=== PATIENT | male | born 1950 | race Caucasian/White ===

== ENCOUNTER 2019-01-03 10:14 | Inpatient (IN) ==
--- NOTE | 2019-01-03 10:44 | Emergency Department Note ---
Disposition Clinical Impression: Acute osteomyelitis, NSTEMI (non-ST elevated myocardial infarction) Diskitis Qualifiers: Spinal region: lumbosacral Qualified Code(s): M46.47 - Discitis, unspecified, lumbosacral region Disposition: Admitted As Inpatient Condition: Good Time of Disposition: 12:58 General Adult HPI - General Stated complaint: positive blood culture Time Seen by Provider: 01/03/19 10:16 Source: patient Limitations: no limitations Nursing Notes Reviewed: Yes Vital Signs Reviewed: Yes - History of Present Illness HPI Narrative: Male patient presenting to the emergency department being sent in by ID for positive blood cultures. States that he is been having issues with his lower back since the day after [place]. He had an extensive workup and was found to have possible discitis. He is scheduled for biopsy tomorrow. And he is requ esting admission to the hospital and also to withhold antibiotics if at all possible until the biopsy can be performed. He did have one blood culture that showed positive for strep species. Sensitivities are not back yet. Patient reports he is just not been feeling well over the past several months. Fatigue more than anything. Does have a history of aortic valve replacement as well as atrial fibrillation. He has been off his own request in preparation for this biopsy tomorrow. He denies any fevers today the states that he did have a fever of 102 approximately a week ago. He has had several episodes of nausea and vomiting but none at this time. He is refusing any medication currently. We will get a basic lab workup on patient as well as a chest x-ray secondary to a cough that he states he has. Pain Scale: 0 - Related Data Allergies Allergy/AdvReac Type Severity Reaction Status Date / Time Penicillins Allergy See Verified 01/03/19 10:58 Comments All systems ED: reviewed and negative except as stated. Review of Systems: As Per HPI Constitutional: Reports: fever (Intermittent not today.) Cardiovascular: Denies: chest pain, syncope Respiratory: Reports: cough, dyspnea. Denies: sputum production Gastrointestinal: Reports: nausea (Occasional not currently), vomiting ( occasional not currently). Denies: abdominal pain, diarrhea Genitourinary: Denies: dysuria Musculoskeletal: Reports: other (Did not complain of ankle pain to me but did to my attending). Denies: back pain (Did previously have back pain but states it feels better at this time) Integumentary: Denies: lesions Past Medical History - Past Medical History Attestation: Yes The following information was validated with the patient. Source: patient Medical history: Reports: atrial fibrillation, hyperlipidemia, hypertension Psychiatric history: Reports: no psych history - Social History Smoking Status: Never smoker Alcohol use: Reports: none Drug use: Reports: none Physical Exam - General Limitations: no limitations General appearance: alert, in no apparent distress - Head Head exam: atraumatic, normocephalic, normal inspection - Eye Eye exam: Present: normal appearance, PERRL, EOMI - ENT ENT exam: normal exam, normal oropharynx, mucous membranes moist - Neck Neck exam: Present: normal inspection, full ROM, trachea midline - Chest Chest inspection: Present: normal inspection, symmetric chest wall rise. Absent: tenderness - Respiratory Respiratory exam: Present: normal lung sounds bilaterally. Absent: respiratory distress, accessory muscle use - Cardiovascular Cardiovascular exam: Present: regular rate, normal rhythm, normal heart sounds - Abdominal Exam Abdominal exam: Present: soft, Non-Tender. Absent: tenderness, distention, guarding, rebound, rigidity, organomegaly - Extremities Exam Extremities exam: Present: normal inspection, full ROM, normal capillary refill. Absent: tenderness, pedal edema, calf tenderness - Back Exam Back exam: Present: normal inspection, full ROM. Absent: tenderness - Neurological Exam Neurological exam: Present: alert, oriented X3 - Psychiatric Psychiatric exam: Present: normal affect, normal mood - Skin Skin exam: Present: warm, dry, intact, other (Ashen in color). Absent: rash Course Course Narrative: Male patient with a significant history of discitis that he is supposed to undergo a biopsy of tomorrow by IR presenting after positive blood cultures were noted. He was positive for streptococcal species. Patient reports intermittent fevers at home but is not febrile here. He is mentating appropriately albeit ashen in color. He denies any chest pain but does report shortness of breath on ambulation. As well as generalized fatigue. Does have history of aortic valve replacement. Was on Elequis however this was held due to the patient's procedure tomorrow. Basic labs were drawn chest x-ray was ordered and repeat blood cultures were ordered. Patient's only had one blood culture result with Streptococcus the other one did not. Leukocytosis was mild at 11. He is not febrile. Patient does report occasional shortness of breath and did have a notably elevated troponin at 0.7. I discussed this with the patient as well as the nurse practitioner on for ID. The concern is we will really like to have the biopsy done prior to the patient being placed on antibiotics however the patient does appear to have some heart strain at this time. No active chest pain no signs of STEMI on the EKG. We did elect to do a CTA of the patient's chest as he has been off the Ellik was he does report some shortness of breath and fatigue. This did not show signs of a PE. We will place patient on heparin. This needs to be stopped approximately 2 hours prior to the biopsies tomorrow. I did make the hospitalist aware of that. - Consultations Consultation #1: I spoke with Annalee Jeet the OMAR from ID about the Pt presentation and elevated troponin. She is going to attempted to get ahold of IR and discuss possible anticoagulation strategies with them. Time: 12:01 Vital Signs Temperature 98.6 F 01/03/19 10:24 Pulse Rate 93 01/03/19 10:24 Respiratory Rate 20 01/03/19 10:24 Blood Pressure 96/66 01/03/19 10:24 O2 Sat by Pulse Oximetry 98 01/03/19 10:24 Temperature 98.6 F 01/03/19 10:24 Pulse Rate 89 01/03/19 12:04 Respiratory Rate 16 01/03/19 12:04 Blood Pressure 105/60 01/03/19 12:04 O2 Sat by Pulse Oximetry 100 01/03/19 12:04 Oxygen Delivery Oxygen Delivery Room Air Medical Decision Making - Medical Records Medical records reviewed: Yes I reviewed the patient's medical records. - Lab Data Lab results reviewed: Yes I reviewed the patient's lab results. Result diagrams: 01/03/19 13:07 01/03/19 10:27 Lab Results 01/03/19 01/03/19 01/03/19 Range/Units 10:27 10:27 10:27 WBC 11.7 H (4.3-11.1) K/mcL RBC 4.12 L (4.19-5.50) M/mcL Hgb 10.7 L (12.9-16.9) g/dL Hct 34.4 L (37.5-50.1) % MCV 83.5 (83.0-100.0) fL MCH 26.0 L (28.0-33.3) pg MCHC 31.1 L (31.6-35.5) g/dL RDW 14.1 (11.5-14.5) % Plt Count 113 L (140-400) K/mcL MPV 8.8 L (9.4-12.4) fL Immature Gran % 0.9 (0-4) % Seg Neutrophils % 83.4 % Lymphocytes % 7.9 % Monocytes % 7.5 % Eosinophils % 0.1 % Basophils % 0.2 % Neutrophils # 9.8 H (1.6-8.9) K/mcL Lymphocytes # 0.9 (0.6-4.6) K/mcL Monocytes # 0.9 (0.0-1.3) K/mcL Eosinophils # 0.0 (0.0-0.6) K/mcL Basophils # 0.0 (0.0-0.2) K/mcL Immature Plt Fraction (1.1-6.1) % PT 17.7 H (9.4-12.1) Seconds INR 1.6 APTT 35.0 (26.0-36.0) Seconds Heparin Anti-Xa, Unfract (0.30-0.70) IU/mL Sodium 135 L (136-145) mEq/L Potassium 3.8 (3.5-5.1) mEq/L Chloride 101 (98-107) mEq/L Carbon Dioxide 26 (23-29) mEq/L BUN 15 (8-23) mg/dL Creatinine 1.02 (0.70-1.30) mg/dL Est GFR ( Amer) > 60 (> 60) Est GFR (Non-Af Amer) > 60 (> 60) BUN/Creatinine Ratio 15 (6-26) Glucose 131 H (70-105) mg/dL Calculated Osmolality 283 (280-300) Lactic Acid (0.5-2.2) mmol/L Calcium 9.0 (8.6-10.3) mg/dL Phosphorus 3.1 (2.7-4.5) mg/dL Magnesium 1.8 (1.6-2.6) mg/dL Total Bilirubin 1.7 H (0.3-1.0) mg/dL Direct Bilirubin 0.4 H (0.0-0.2) mg/dL Indirect Bilirubin 1.3 H (0.0-1.2) mg/dL AST 13 (13-39) Units/L ALT 11 (7-52) Units/L Alkaline Phosphatase 59 (34-104) Units/L Troponin I 0.72 H* (< 0.04) ng/mL B-Natriuretic Peptide (Less than 100) pg/mL Serum Total Protein 6.3 L (6.4-8.9) g/dL Albumin 3.0 L (3.5-5.7) g/dL Globulin 3.3 (2.4-3.5) g/dL Albumin/Globulin Ratio 0.9 L (1.1-2.2) Urine Color (Yellow) Urine Clarity (Clear) Urine pH (5.0-8.0) pH Units Ur Specific [place] (1.010-1.025) Urine Protein (Neg-Trace) mg/dL Urine Glucose (UA) (Normal) mg/dL Urine Ketones (Negative) mg/dL Urine Blood (Negative) Urine Nitrite (Negative) Urine Bilirubin (Negative) Urine Urobilinogen (Normal) mg/dL Ur Leukocyte Esterase (Negative) Urine Microscopic RBC (0-3) per hpf Urine Microscopic WBC (0-3) per hpf Ur Squamous Epith Cells (None-Few) per lpf Urine Bacteria (None-Few) per hpf Hyaline Casts (None-Few) per lpf Ur Culture Indicated? (NO) 01/03/19 01/03/19 01/03/19 Range/Units 10:48 10:48 12:00 WBC (4.3-11.1) K/mcL RBC (4.19-5.50) M/mcL Hgb (12.9-16.9) g/dL Hct (37.5-50.1) % MCV (83.0-100.0) fL MCH (28.0-33.3) pg MCHC (31.6-35.5) g/dL RDW (11.5-14.5) % Plt Count (140-400) K/mcL MPV (9.4-12.4) fL Immature Gran % (0-4) % Seg Neutrophils % % Lymphocytes % % Monocytes % % Eosinophils % % Basophils % % Neutrophils # (1.6-8.9) K/mcL Lymphocytes # (0.6-4.6) K/mcL Monocytes # (0.0-1.3) K/mcL Eosinophils # (0.0-0.6) K/mcL Basophils # (0.0-0.2) K/mcL Immature Plt Fraction (1.1-6.1) % PT (9.4-12.1) Seconds INR APTT (26.0-36.0) Seconds Heparin Anti-Xa, Unfract (0.30-0.70) IU/mL Sodium (136-145) mEq/L Potassium (3.5-5.1) mEq/L Chloride (98-107) mEq/L Carbon Dioxide (23-29) mEq/L BUN (8-23) mg/dL Creatinine (0.70-1.30) mg/dL Est GFR ( Amer) (> 60) Est GFR (Non-Af Amer) (> 60) BUN/Creatinine Ratio (6-26) Glucose (70-105) mg/dL Calculated Osmolality (280-300) Lactic Acid 1.0 (0.5-2.2) mmol/L Calcium (8.6-10.3) mg/dL Phosphorus (2.7-4.5) mg/dL Magnesium (1.6-2.6) mg/dL Total Bilirubin (0.3-1.0) mg/dL Direct Bilirubin (0.0-0.2) mg/dL Indirect Bilirubin (0.0-1.2) mg/dL AST (13-39) Units/L ALT (7-52) Units/L Alkaline Phosphatase (34-104) Units/L Troponin I (< 0.04) ng/mL B-Natriuretic Peptide 567 H (Less than 100) pg/mL Serum Total Protein (6.4-8.9) g/dL Albumin (3.5-5.7) g/dL Globulin (2.4-3.5) g/dL Albumin/Globulin Ratio (1.1-2.2) Urine Color Dark Yellow (Yellow) Urine Clarity Clear (Clear) Urine pH 6.0 (5.0-8.0) pH Units Ur Specific [place] 1.014 (1.010-1.025) Urine Protein 30 H (Neg-Trace) mg/dL Urine Glucose (UA) Normal (Normal) mg/dL Urine Ketones Negative (Negative) mg/dL Urine Blood Small H (Negative) Urine Nitrite Negative (Negative) Urine Bilirubin Small H (Negative) Urine Urobilinogen 4.0 H (Normal) mg/dL Ur Leukocyte Esterase Negative (Negative) Urine Microscopic RBC 5-15 H (0-3) per hpf Urine Microscopic WBC 0-3 (0-3) per hpf Ur Squamous Epith Cells Moderate H (None-Few) per lpf Urine Bacteria None Seen (None-Few) per hpf Hyaline Casts None Seen (None-Few) per lpf Ur Culture Indicated? NO (NO) 01/03/19 01/03/19 Range/Units 13:07 13:07 WBC 11.1 (4.3-11.1) K/mcL RBC 3.79 L (4.19-5.50) M/mcL Hgb 9.9 L (12.9-16.9) g/dL Hct 31.8 L (37.5-50.1) % MCV 83.9 (83.0-100.0) fL MCH 26.1 L (28.0-33.3) pg MCHC 31.1 L (31.6-35.5) g/dL RDW 14.0 (11.5-14.5) % Plt Count 109 L (140-400) K/mcL MPV 8.4 L (9.4-12.4) fL Immature Gran % (0-4) % Seg Neutrophils % % Lymphocytes % % Monocytes % % Eosinophils % % Basophils % % Neutrophils # (1.6-8.9) K/mcL Lymphocytes # (0.6-4.6) K/mcL Monocytes # (0.0-1.3) K/mcL Eosinophils # (0.0-0.6) K/mcL Basophils # (0.0-0.2) K/mcL Immature Plt Fraction 1.0 L (1.1-6.1) % PT 17.1 H (9.4-12.1) Seconds INR 1.5 APTT (26.0-36.0) Seconds Heparin Anti-Xa, Unfract 0.21 L (0.30-0.70) IU/mL Sodium (136-145) mEq/L Potassium (3.5-5.1) mEq/L Chloride (98-107) mEq/L Carbon Dioxide (23-29) mEq/L BUN (8-23) mg/dL Creatinine (0.70-1.30) mg/dL Est GFR ( Amer) (> 60) Est GFR (Non-Af Amer) (> 60) BUN/Creatinine Ratio (6-26) Glucose (70-105) mg/dL Calculated Osmolality (280-300) Lactic Acid (0.5-2.2) mmol/L Calcium (8.6-10.3) mg/dL Phosphorus (2.7-4.5) mg/dL Magnesium (1.6-2.6) mg/dL Total Bilirubin (0.3-1.0) mg/dL Direct Bilirubin (0.0-0.2) mg/dL Indirect Bilirubin (0.0-1.2) mg/dL AST (13-39) Units/L ALT (7-52) Units/L Alkaline Phosphatase (34-104) Units/L Troponin I (< 0.04) ng/mL B-Natriuretic Peptide (Less than 100) pg/mL Serum Total Protein (6.4-8.9) g/dL Albumin (3.5-5.7) g/dL Globulin (2.4-3.5) g/dL Albumin/Globulin Ratio (1.1-2.2) Urine Color (Yellow) Urine Clarity (Clear) Urine pH (5.0-8.0) pH Units Ur Specific [place] (1.010-1.025) Urine Protein (Neg-Trace) mg/dL Urine Glucose (UA) (Normal) mg/dL Urine Ketones (Negative) mg/dL Urine Blood (Negative) Urine Nitrite (Negative) Urine Bilirubin (Negative) Urine Urobilinogen (Normal) mg/dL Ur Leukocyte Esterase (Negative) Urine Microscopic RBC (0-3) per hpf Urine Microscopic WBC (0-3) per hpf Ur Squamous Epith Cells (None-Few) per lpf Urine Bacteria (None-Few) per hpf Hyaline Casts (None-Few) per lpf Ur Culture Indicated? (NO) - Radiology Data Radiology results reviewed: Yes I reviewed the patient's radiology results. Chest X-Ray 01/03/19 10:45 IMPRESSION: Vascular congestion without overt pulmonary edema. No focal consolidation. D/ / Salbador Hilliard MD / Salbador Hilliard MD Interpreting Provider: Salbador Hilliard MD Chest CTA 01/03/19 12:06 IMPRESSION: 1. Negative CT angiogram for acute pulmonary embolism. 2. No acute cardiopulmonary process identified. D/ / David Jose MD / David Jose MD Interpreting Provider: David Jose MD - EKG Data EKG #1 EKG attestation: Yes I reviewed and interpreted this EKG. EKG results narrative: Repeat EKG timed 1153. A. fib at a rate of 95. QRS duration is 114. QT is 394. QTC is 446. Again no signs of acute ischemia. Patient does have multiple PVCs that are polymorphic. EKG #2 EKG attestation: Yes I reviewed and interpreted this EKG. EKG results narrative: Repeat EKG timed 1153. A. fib at a rate of 95. QRS duration is 114. QT is 394. QTC is 446. Again no signs of acute ischemia. Patient does have multiple PVCs that are polymorphic. Critical Care Time Critical Care Time: Yes Total Critical Care Time: 35 Attestation: Critical care time 35 minutes managing patient's elevated troponin. Attestation Statement - Attestation Attestation: Patient was seen with resident physician. I reviewed the history, physical, assessment and plan, and agree with the findings. I also personally evaluated this patient and had [id number] time with this patient. 68-year-old male sent in by infectious disease requesting admission as he recently had a blood culture that showed a positive. Per patient as well as per physician report, patient has a biopsy scheduled for form of discitis coming up this week. Head labs done as a result of preparation for this on Friday when which was positive for blood cultures. Patient also states she has had inter mittent shortness of breath on exertion for the last couple weeks. He has a history of A. fib. He says he feels his A. fib a little bit more sometimes when he has his episodes. He describes getting out of his car and sometimes he can walk for a while and sometimes she is very short of breath after short walking. He is not had any swelling of the lower extremities or weight gain. He denies fevers chills chest pain long car trips or other complaints at this time. Review of systems as above remainder negative. Physical exam vital signs are stable. Patient is not febrile. ENT is unremarka ble. Heart regular rhythm and rate. Lungs clear. Adamant soft nontender. Extremities are unremarkable. Neurologically intact. Skin no rashes. Psych normal. ED course. We will repeat blood work. We will also get a chest x-ray do some evaluation for short of breath. EKG shows atrial fibrillation which is unchanged from a older EKG. There is no new ischemic changes. It was requested that we not start him on antibiotics unless he was febrile. As they felt this could affect the biopsy results. Per that request from ID, those were not started. Once we had all the clinical data obtained, we notified the hospitalist service agreed to accept the patient for admission. Patient had a n umber of abnormalities that we noticed on examination. He has vascular congestion on x-ray consistent with his elevated BNP and heart failure. Additionally patient had an elevated troponin. We did do a CT scan of the chest to make sure he did not have a PE concerning is gotten infectious process. This was negative for PE, but did confront the discitis. We started the patient on heparin for his elevated troponin. We communicated with both infectious disease as well as the hospitalist service. Patient was hemodynamically stable in the emergency department. Critical care time was 35 minutes. Agree with resident physician assessment and plan.
[2019-01-03] MEDS: 0.9 % Sodium Chloride 1,000 ML IVC ONE ×2 (10:55→15:21)
[2019-01-03 11:05] LABS: Basophils % 0.2 %; Eosinophils % 0.1 %; Hematocrit 34.4 % (37.5-50.1); Hemoglobin 10.7 g/dL (12.9-16.9); Immature Granulocytes % 0.9 % (0-4); Lymphocytes # 0.9 K/mcL (0.6-4.6); Lymphocytes % 7.9 %; Mean Corpuscular HGB Conc 31.1 g/dL (31.6-35.5); Mean Corpuscular Volume 83.5 fL (83.0-100.0); Mean Platelet Volume 8.8 fL (9.4-12.4); Monocytes # 0.9 K/mcL (0.0-1.3); Monocytes % 7.5 %; Neutrophils # 9.8 K/mcL (1.6-8.9); Platelet Count 113 K/mcL (140-400); Red Blood Count 4.12 M/mcL (4.19-5.50); Red Cell Distribution Width 14.1 % (11.5-14.5); Segmented Neutrophils % 83.4 %
[2019-01-03 11:12] LABS: INR 1.6; Prothrombin Time 17.7 Seconds (9.4-12.1)
[2019-01-03 11:38] LABS: Alanine Aminotransferase 11 Units/L (7-52); Albumin/Globulin Ratio 0.9 (1.1-2.2); Alkaline Phosphatase 59 Units/L (34-104); Aspartate Amino Transferase 13 Units/L (13-39); BUN/Creatinine Ratio 15 (6-26); Bilirubin,Direct 0.4 mg/dL (0.0-0.2); Bilirubin,Indirect 1.3 mg/dL (0.0-1.2); Bilirubin,Total 1.7 mg/dL (0.3-1.0); Blood Urea Nitrogen 15 mg/dL (8-23); Carbon Dioxide 26 mEq/L (23-29); Chloride 101 mEq/L (98-107); Globulin 3.3 g/dL (2.4-3.5); Glucose 131 mg/dL (70-105); Magnesium 1.8 mg/dL (1.6-2.6); Osmolality,Calculated 283 (280-300); Phosphorous 3.1 mg/dL (2.7-4.5); Potassium 3.8 mEq/L (3.5-5.1); Sodium 135 mEq/L (136-145); Total Protein 6.3 g/dL (6.4-8.9); Troponin I 0.72 ng/mL (< 0.04); eGFR For Non-African Americans > 60 (> 60)
[2019-01-03] MEDS ORDERED: Isovue-370 500 ML BOTTLE IVP ONE (12:06)
[2019-01-03 12:17] LABS: Bilirubin,Urine Small (Negative); Blood,Urine Small (Negative); Clarity,Urine Clear (Clear); Color,Urine Dark Yellow (Yellow); Glucose,Urine (UA) Normal (Normal); Ketones,Urine Negative (Negative); Leukocyte Esterase,Urine Negative (Negative); Nitrite,Urine Negative (Negative); Protein,Urine 30 mg/dL (Neg-Trace); Specific Gravity,Urine 1.014 (1.010-1.025)
[2019-01-03 12:20] LABS: Bacteria,Urine None Seen per hpf (None-Few); Hyaline Casts,Urine None Seen per lpf (None-Few); Squamous Epithelial Cell,Urine Moderate per lpf (None-Few); WBC,Urine 0-3 per hpf (0-3)
[2019-01-03] MEDS ORDERED: *HR* Heparin 5,000 UNIT/ML VIAL IVP PRN (12:53)
[2019-01-03] MEDS ORDERED: *HR* Heparin 5,000 UNIT/ML VIAL IVP ONE (12:53)
[2019-01-03 13:28] LABS: Mean Corpuscular HGB Conc 31.1 g/dL (31.6-35.5); Mean Corpuscular Hemoglobin 26.1 pg (28.0-33.3)
[2019-01-03 13:30] LABS: Hematocrit 31.8 % (37.5-50.1); Hemoglobin 9.9 g/dL (12.9-16.9); Mean Corpuscular Volume 83.9 fL (83.0-100.0); Mean Platelet Volume 8.4 fL (9.4-12.4); Red Blood Count 3.79 M/mcL (4.19-5.50)
[2019-01-03 13:38] LABS: Heparin anti-factor XA UFH 0.21 IU/mL (0.30-0.70)
[2019-01-03 13:39] LABS: INR 1.5; Prothrombin Time 17.1 Seconds (9.4-12.1)
--- NOTE | 2019-01-03 14:44 | Internal Med History&Physical ---
Date of Encounter: 01/03/19 Time of Encounter: 14:15 Internal Medicine - H&P: HPI Chief complaint: Positive blood cultures Admitted From: Emergency Dept Plans for Post Hospital Care: Transfer Intermediate Facility History of present illness: Mr. Maurice is a 68 year old male patient with history of aortic aneurysm status post surgery, bioprosthetic aortic valve, mitral valve annuloplasty, atrial fibrillation on Eliquis, hypertension who presented to the ER per request from his infectious disease doctor the 2 positive blood cultures. Patient has been having episodes of fever at home but denies any pain shortness of breath. He does not have any nausea or vomiting. He denies any back pain. He had a lumbar MRI done through his primary care provider in November which showed possible discitis/osteomyelitis in the L3-L4 region. At that time he was placed on Levaquin. He took this medication for about 5 days and then was told to stop it so that a bone biopsy could be done. Patient has also been holding his anticoagulation for this reason. He denies any chest pain. He has not had an intervention on his back besides laminectomy several years back. Prior to the laminectomy he has had epidural injections but he has not had any injections recently. Past Med Surg Social Fam HX - Past Medical History Attestation: Yes The following information was validated with the patient. Source: patient Medical history: atrial fibrillation, hyperlipidemia, hypertension Psychiatric history: no psych history - Past Surgical History Additional surgical history: back surgery - Social History Smoking Status: Never smoker Alcohol use: none Drug use: none Internal Medicine - H&P: Meds Apixaban [Eliquis] 5 mg PO BID 01/03/19 [History] Aspirin [Lo-Dose Aspirin EC] 162 mg PO DAILY 01/03/19 [History] Atorvastatin Calcium [Lipitor] 20 mg PO DAILY 01/03/19 [History] Bisacodyl [Dulcolax] 5 mg PO DAILY PRN 01/03/19 [History] Escitalopram [Lexapro] 10 mg PO HS 01/03/19 [History] Lactulose [Enulose] 15 ml PO DAILY PRN 01/03/19 [History] Metoprolol Tartrate [Lopressor] 50 mg PO BID 01/03/19 [History] Tamsulosin HCl [Flomax] 0.4 mg PO HS 01/03/19 [History] Triamterene/HCTZ 37.5/25mg [Dyazide] 1 tab PO DAILY 01/03/19 [History] Allergy/AdvReac Type Severity Reaction Status Date / Time Penicillins Allergy See Verified 01/03/19 14:40 Comments All Systems PM: A 10-system review of systems was performed and is negative for pertinent findin gs except as documented above in the HPI. - Constitutional Constitutional: no chills, no fever(s), no night sweats - EENT Eyes: no change in vision, no discharge, no pain, no photophobia Ears: no ear discharge, no ear pain, no tinnitus Nose, mouth and throat: no dysphagia, no nasal discharge, no neck pain, no sore throat - Cardiovascular Cardiovascular ROS IM: no chest pain, no diaphoresis, no dyspnea, no lightheadedness, no palpitations, no syncope - Respiratory Respiratory: no cough, no dyspnea, no wheezing, no excessive phlegm production - Gastrointestinal Gastrointestinal: no abdominal pain, no diarrhea, no hematemesis, no hematochezia, no melena, no nausea, no vomiting - Musculoskeletal Musculoskeletal ROS IM: no numbness, no tingling - Integumentary Integumentary IM: no rash, no unusual bruising - Neurological Neurological ROS: no confusion, no convulsions, no focal weakness, no numbness, no tingling, no tremor(s) - Hematologic/Lymphatic Hematologic/Lymphatic: no easy bruising - Constitutional Vitals: Temp Pulse Resp BP Pulse Ox 98.6 F 89 16 105/60 100 01/03/19 10:24 01/03/19 12:04 01/03/19 12:04 01/03/19 12:04 01/03/19 12:04 General appearance: Present: cooperative, A&O X 3, no acute distress, answers questions appropriately Exam: General: Patient is alert, no acute distress, oriented x 3 ENT: Mucous membranes moist Eye: normal appearance, PERRL, no scleral icterus, no conjunctival injection Neck: normal inspection, trachea midline, full ROM, no carotid bruits Respiratory: Good respiratory effort. Normal breath sounds. No wheezing or crackles. Cardiovascular: Regular rate and rhythm. s1 and s2 normal systolic click and murmur. No pedal edema Abdomen: Abdomen is soft, nontender. Bowel sounds are present Musculoskeletal: Spontaneously moving all extremities Skin: warm, dry, intact. Neuro: Alert oriented x 3 normal cranial nerves, no focal deficits Psych: Patient's affect is normal - Back Exam Back exam: Present: normal inspection. Absent: paraspinal tenderness, vertebral tenderness Internal Med - H&P Results - Labs CBC & Chem 7: 01/03/19 13:07 01/03/19 10:27 Labs: Short CBC 01/03/19 01/03/19 Range/Units 10:27 13:07 WBC 11.7 H 11.1 (4.3-11.1) K/mcL Hgb 10.7 L 9.9 L (12.9-16.9) g/dL Hct 34.4 L 31.8 L (37.5-50.1) % Plt Count 113 L 109 L (140-400) K/mcL Neutrophils # 9.8 H (1.6-8.9) K/mcL BMP 01/03/19 10:27 Sodium 135 L Potassium 3.8 Chloride 101 Carbon Dioxide 26 BUN 15 Creatinine 1.02 Glucose 131 H Calcium 9.0 Cardiac Enzymes 01/03/19 Range/Units 10:27 Troponin I 0.72 H* (< 0.04) ng/mL Liver Function 01/03/19 Range/Units 10:27 Total Bilirubin 1.7 H (0.3-1.0) mg/dL Direct Bilirubin 0.4 H (0.0-0.2) mg/dL AST 13 (13-39) Units/L ALT 11 (7-52) Units/L Alkaline Phosphatase 59 (34-104) Units/L Albumin 3.0 L (3.5-5.7) g/dL Urine 01/03/19 Range/Units 12:00 Urine Color Dark Yellow (Yellow) Urine Clarity Clear (Clear) Urine pH 6.0 (5.0-8.0) pH Units Ur Specific [place] 1.014 (1.010-1.025) Urine Protein 30 H (Neg-Trace) mg/dL Urine Glucose (UA) Normal (Normal) mg/dL - Impressions ITS Impressions Chest X-Ray 01/03/19 10:45 IMPRESSION: Vascular congestion without overt pulmonary edema. No focal consolidation. D/ / Salbador Hilliard MD / Salbador Hilliard MD Interpreting Provider: Salbador Hilliard MD Chest CTA 01/03/19 12:06 IMPRESSION: 1. Negative CT angiogram for acute pulmonary embolism. 2. No acute cardiopulmonary process identified. D/ / David Jose MD / David Jose MD Interpreting Provider: David Jose MD - Assessment and Plan (1) Acute osteomyelitis Current Visit: Yes Status: Suspected Assessment and plan: Possible acute osteomyelitis/discitis involving L3-L4 region. Discussed with infectious disease. Will hold off on antibiotics till the biopsy sample can be obtained for culture. One set of 2 blood blood cultures from 12/30 growing gram- positive cocci possible strep species. Repeat cultures have been sent from the ER. (2) NSTEMI (non-ST elevated myocardial infarction) Current Visit: Yes Status: Chronic Assessment and plan: Patient has elevated troponin. He does not have chest pain. He has not been hypotensive either. Etiology uncertain. Will obtain 2-D echocardiogram. Trend troponins. Continue IV heparin. Cardiology consultation. (3) Atrial fibrillation Current Visit: Yes Status: Acute Assessment and plan: Patient going in and out of A. fib but rate controlled. Continue home medications. Monitor with telemetry Qualifiers: Atrial fibrillation type: paroxysmal Qualified Code(s): I48.0 - Paroxysmal atrial fibrillation (4) Essential hypertension Current Visit: Yes Status: Acute Assessment and plan: Blood pressure is well controlled at this time. Will continue home medications - Time Spent With Patient Total time spent is greater than 50% in coordination of care (as documented) at patient's floor/unit and/or counseling patient:
[2019-01-03] MEDS ORDERED: Lactulose Oral Soln 20 GM/30 ML UDC PO PRN (14:50)
[2019-01-03] MEDS: Heparin 25,000 UNIT/250 ML D5W 25,000 UNIT/250 ML IV.SOLN IVC SCH (16:48)
[2019-01-04 05:28] LABS: Acinetobacter baumannii by PCR Not Detected (Not Detect); Candida albicans by PCR Not Detected (Not Detect); Candida glabrata by PCR Not Detected (Not Detect); Candida krusei by PCR Not Detected (Not Detect); Candida parapsilosis by PCR Not Detected (Not Detect); Enterobacter cloacae Cmplx PCR Not Detected (Not Detect); Enterobacteriaceae by PCR Not Detected (Not Detect); Enterococcus by PCR Not Detected (Not Detect); Escherichia coli by PCR Not Detected (Not Detect); Klebsiella oxytoca by PCR Not Detected (Not Detect); Klebsiella pneumoniae by PCR Not Detected (Not Detect); Proteus by PCR Not Detected (Not Detect); Pseudomonas aeruginosa by PCR Not Detected (Not Detect); Serratia marcescens by PCR Not Detected (Not Detect); Staphylococcus aureus by PCR Not Detected (Not Detect); Staphylococcus by PCR Not Detected (Not Detect); Streptococcus agalactiae(B)PCR Not Detected (Not Detect); Streptococcus by PCR DETECTED (Not Detect); Streptococcus pneumoniae PCR Not Detected (Not Detect); Streptococcus pyogenes (A) PCR Not Detected (Not Detect); blaKPC Carbapenem-Resist Gene Not Detected (Not Detect); vanA/B Vancomycin-Resist Genes Not Detected (Not Detect)
[2019-01-04 05:29] LABS: Candida tropicalis by PCR Not Detected (Not Detect)
[2019-01-04 06:21] LABS: INR 1.5; Prothrombin Time 17.4 Seconds (9.4-12.1)
[2019-01-04 06:30] LABS: Heparin anti-factor XA UFH 0.27 IU/mL (0.30-0.70)
[2019-01-04 06:36] LABS: % Iron Saturation 8 % (20-55); BUN/Creatinine Ratio 15 (6-26); Basophils % 0.2 %; Blood Urea Nitrogen 14 mg/dL (8-23); Calcium 8.9 mg/dL (8.6-10.3); Carbon Dioxide 26 mEq/L (23-29); Chloride 102 mEq/L (98-107); Eosinophils % 0.2 %; Glucose 139 mg/dL (70-105); Hematocrit 33.8 % (37.5-50.1); Hemoglobin 10.3 g/dL (12.9-16.9); Immature Granulocytes % 0.8 % (0-4); Iron 18 mcg/dL (65-175); Lymphocytes # 1.2 K/mcL (0.6-4.6); Lymphocytes % 8.9 %; Mean Corpuscular HGB Conc 30.5 g/dL (31.6-35.5); Mean Corpuscular Hemoglobin 25.8 pg (28.0-33.3); Mean Corpuscular Volume 84.7 fL (83.0-100.0); Mean Platelet Volume 8.7 fL (9.4-12.4); Monocytes # 0.8 K/mcL (0.0-1.3); Monocytes % 6.2 %; Neutrophils # 11.2 K/mcL (1.6-8.9); Osmolality,Calculated 281 (280-300); Platelet Count 126 K/mcL (140-400); Potassium 3.6 mEq/L (3.5-5.1); Red Blood Count 3.99 M/mcL (4.19-5.50); Red Cell Distribution Width 14.2 % (11.5-14.5); Segmented Neutrophils % 83.7 %; Sodium 134 mEq/L (136-145); Transferrin 167 mg/dL (203-362); eGFR For Non-African Americans > 60 (> 60)
[2019-01-04 06:54] LABS: Ferritin 593 ng/mL (20-250)
[2019-01-04 06:56] LABS: Folate 9.8 ng/mL (3.0-16.0)
--- NOTE | 2019-01-04 08:33 | Cardiology Consult Note ---
Date of Encounter: 01/04/19 Time of Encounter: 12:45 Assessment and Plan (1) Bacteremia Current Visit: Yes Status: Acute Has reported fatigue, weakness, fever, and chills accompanied by low back pain since approximately August of 2018 Peripheral blood culture results from 01/03 are both preliminarily positive for Gram positive cocci This is concerning with hx of bioprosthetic aortic valve and mitral valve annuloplasty. Trans-thoracic echo today revealed moderate aortic stenosis and mild regurg which is significantly changed when compared to echo from 05/29/16. Echo today also revealed mild mitral regurgitation, and mild tricuspid regurgitation. NPO after midnight for FIFI in the morning (2) Elevated troponin Current Visit: Yes Status: Acute Denies any chest pain Trop elevated on admission at 0.72 -> 0.48 -> 0.52 -> 0.60 EKG without ischemic changes Echo showed LVEF 40-45%, moderate global LV systolic dysfunction with indeterminate diastolic function. Mild RV systolic function. Valvular abnormalities and hx of repairs as mentioned in Bacteremia Low suspicion of NSTEMI, but unable to completely rule out at this time. Continue Heparin drip at this time. May consider stopping tomorrow pending FIFI results. (3) Acute osteomyelitis Current Visit: Yes Status: Suspected Suspected based off CT of the abdomen and pelvis from October 2018 and MRI of the L spine in November 2018. Underwent biopsy of L spine today. Infectious disease is on board. Management per their recs and primary. (4) Atrial fibrillation Current Visit: Yes Status: Acute Hx of paroxysmal afib Currently in normal sinus rhythm Continue home Metoprolol Spoke with pt regarding his home anticoagulation. He currently takes Eliquis, however with his hx of prosthetic valve he should really be on Coumadin. Will continue to discuss risk/benefits with pt. Qualifiers: Atrial fibrillation type: paroxysmal Qualified Code(s): I48.0 - Paroxysmal atrial fibrillation (5) H/O aortic valve replacement Current Visit: Yes Status: Acute Hx from 06/02/14 (6) H/O aortic root repair Current Visit: Yes Status: Acute Hx from 06/02/14 (7) H/O mitral valve repair Current Visit: Yes Status: Acute Hx of mitral annuloplasty on 06/02/14 Discussion w patient/family: The assessment and plan as outlined above was discussed with the patient and/or family members who expressed understanding and agreement. All questions were answered. Thank you for involving us in the care of your patient. Please call with any questions. History of Present Illness Consult date: 01/04/19 Requesting physician: Stella Eden Consult reason: Elevated Troponin Chief complaint: Positive blood cultures History of present illness: Mr. Maurice is a 68 year old male with PMH of paroxysmal afib, HLD, HTN, juan valve annuloplasty, and bioprosthetic aortic valve with aortic root repair. He was admitted on 01/03/19 for 2 positive blood cultures. States he has been experiencing some low back pain accompanied by fever, and chills since around 2017. States initially he tried rest and Flexeril for the back pain, but since this did not improve he had an MRI of the lumbar spine. He does have a remote history of laminectomy. Denies any chest pain or shortness of breath. Denies any diaphoresis, cough, or edema. Past Med Surg Social Fam HX - Past Medical History Medical history: atrial fibrillation, hyperlipidemia, hypertension Psychiatric history: anxiety - Past Surgical History Surgical History: coronary bypass (CABG) Additional surgical history: LAMINECTOMY 2011 . 2013 CABG, COW VALVE CARIDAC VALVE REPLACEMENT. AND VALVE REPAIR. AORTA REPLACEMENT S/P ANEURSYM. - Social History Smoking Status: Never smoker Smokeless Tobacco Status: No Alcohol use: none Drug use: none - Family History Mother Hx Family Cancer: Yes (MULTIPLE MYELOMA) Father Hx Family Endocrine Disorder: Yes (DM) Medications and Allergies Apixaban [Eliquis] 5 mg PO BID 01/03/19 [History] Aspirin [Lo-Dose Aspirin EC] 162 mg PO DAILY 01/03/19 [History] Atorvastatin Calcium [Lipitor] 20 mg PO DAILY 01/03/19 [History] Bisacodyl [Dulcolax] 5 mg PO DAILY PRN 01/03/19 [History] Escitalopram [Lexapro] 10 mg PO HS 01/03/19 [History] Lactulose [Enulose] 15 ml PO DAILY PRN 01/03/19 [History] Metoprolol Tartrate [Lopressor] 50 mg PO BID 01/03/19 [History] Tamsulosin HCl [Flomax] 0.4 mg PO HS 01/03/19 [History] Triamterene/HCTZ 37.5/25mg [Dyazide] 1 tab PO DAILY 01/03/19 [History] Allergy/AdvReac Type Severity Reaction Status Date / Time Penicillins Allergy See Verified 01/03/19 14:40 Comments All Systems Review: The remainder of the systems were reviewed and are negative - Constitutional Constitutional: chills, fatigue, fever(s), weakness - EENT Eyes: no blurred vision, no loss of vision Nose, mouth and throat: no sinus pain, no sore throat - Cardiovascular Cardiovascular: orthopnea, no chest pain at rest, no chest pain with exertion, no dyspnea at rest, no dyspnea on exertion, no lightheadedness, no palpitations - Respiratory Respiratory: no cough, no dyspnea, no hemoptysis - Gastrointestinal Gastrointestinal: no abdominal pain, no constipation, no diarrhea - Genitourinary Genitourinary: no dysuria, no hematuria - Musculoskeletal Musculoskeletal: back pain, no arthralgias, no muscle weakness - Integumentary Integumentary: no erythema, no rash, no unusual bruising - Neurological Neurological: no dizziness, no numbness, no tingling - Hematological/Lymphatic Hematologic/Lymphatic: no easy bleeding, no easy bruising Physical Examination Vital Signs, Last 4 Hours Temp Pulse Resp BP Pulse Ox 01/04/19 06:28 98.4 F 78 16 124/68 95 General: Conversant, No Apparent Distress HEENT: Atraumatic, Normocephaly, Mucus Membranes Moist Neck: No JVD, Normal carotid pulses Cardiac: Reg Rate and Rhythm, Normal S1 and S2, No Murmur Lungs: Normal Breath Sounds, No Wheeze, Rales, Rhonchi Neuro: Alert and responsive, No focal deficits noted Abdomen: Soft, Non-Tender Skin: No rashes noted on visualized skin Musculoskeletal: No Chest Wall Tenderness Extremities: No Clubbing, No Cyanosis, No Edema, Normal Pulses Results 01/04/19 05:59 01/04/19 05:59 Lab Results 01/03/19 01/03/19 01/03/19 10:27 10:27 10:27 WBC 11.7 H Hgb 10.7 L Hct 34.4 L Plt Count 113 L INR 1.6 APTT 35.0 Sodium 135 L Potassium 3.8 Chloride 101 Carbon Dioxide 26 BUN 15 Creatinine 1.02 Glucose 131 H Calcium 9.0 Magnesium 1.8 Total Bilirubin 1.7 H AST 13 ALT 11 Alkaline Phosphatase 59 Troponin I 0.72 H* B-Natriuretic Peptide 01/03/19 01/03/19 01/03/19 10:48 13:07 13:07 WBC 11.1 Hgb 9.9 L Hct 31.8 L Plt Count 109 L INR 1.5 APTT Sodium Potassium Chloride Carbon Dioxide BUN Creatinine Glucose Calcium Magnesium Total Bilirubin AST ALT Alkaline Phosphatase Troponin I B-Natriuretic Peptide 567 H 01/03/19 01/03/19 01/04/19 17:16 22:29 05:59 WBC 13.3 H Hgb 10.3 L Hct 33.8 L Plt Count 126 L INR APTT Sodium Potassium Chloride Carbon Dioxide BUN Creatinine Glucose Calcium Magnesium Total Bilirubin AST ALT Alkaline Phosphatase Troponin I 0.48 H* 0.52 H* B-Natriuretic Peptide 01/04/19 01/04/19 05:59 05:59 WBC Hgb Hct Plt Count INR 1.5 APTT Sodium 134 L Potassium 3.6 Chloride 102 Carbon Dioxide 26 BUN 14 Creatinine 0.93 Glucose 139 H Calcium 8.9 Magnesium Total Bilirubin AST ALT Alkaline Phosphatase Troponin I 0.60 H* B-Natriuretic Peptide - Imaging and Cardiology Chest Xray: report reviewed, image reviewed Echo: report reviewed - EKG Interpretation EKG results cardiology: personally reviewed, normal ECG, sinus rhythm Consult Discharge Plan - Plan Referrals: Oral Shaw DO [Primary Care Provider] -
--- NOTE | 2019-01-04 08:49 | Infectious Disease Consult ---
Date of Encounter: 01/04/19 Time of Encounter: 10:59 Assessment and Plan (1) Sepsis Status: Acute Assessment and plan: The patient had 2 sepsis criteria on admission. Likely secondary to bacteremia and osteomyelitis. White blood cell count worse today. Tachycardia has resolved. Blood cultures drawn 12/30/18 are +1 out of 2 sets for strep species. Repeat blood cultures from 01/03/19 are also +2 out of 2 sets for strep species. Recommendations: Await final ID and susceptibilities. Repeat blood cultures 2. Consult interventional radiology for aspiration of the lumbar spine disc space. 7 aspiration for cultures (aerobic, anaerobic, AFB, and fungal). Send specimen for pathology. TTE pending completion. Will likely need a FIFI prior to discharge. Once biopsy completed, start Rocephin 2 g IV daily. The patient does have a listed allergy to penicillin. He tells me that he had a reaction when he was a child, exact mechanism of reaction unknown. We will need to monitor closely for signs of allergic reaction. Start Vancomycin IV. Pharmacy to dose. Goal trough ~15. Duration of treatment depends on the clinical picture, likely at least 6 weeks. Monitor renal function and dose adjust antibiotics. Avoid insertion of long-term IV access until repeat blood cultures are negative 48 hours. ambulatory services representative to assist with discharge planning. Qualifiers: Sepsis type: Streptococcus, unspecified Qualified Code(s): A40.9 - Streptococcal sepsis, unspecified; A40 - Streptococcal sepsis (2) Bacteremia Status: Acute Assessment and plan: Causative organism: Strep species. Blood cultures drawn 12/30/18 are +1 out of 2 for strep species per the PCR. Repeat blood cultures drawn 01/03/19 are +2 out of 2 sets as well. Source: Unclear. He does have a bioprosthetic heart valve. No endocarditis stigmata noted. TTE pending completion today. He will likely need a FIFI prior to discharge. Antibiotics currently on hold until bone biopsy is completed. (3) Acute osteomyelitis Status: Acute Assessment and plan: Causative organism: Unclear, but given blood culture results, high index of suspicion for strep species. CT of the abdomen and pelvis in October 2018 showed findings indicative of osteoarthritis/discitis. MRI of the lumbar spine completed November 2018 showed findings indicative of discitis/osteomyelitis. Patient was originally scheduled for outpatient bone biopsy today, but became bacteremic and was admitted overnight. Scheduled to undergo biopsy of the lumbar spine later this morning. Antibiotics currently on hold until biopsy is completed. (4) NSTEMI (non-ST elevated myocardial infarction) Status: Chronic Assessment and plan: Troponin elevated on admission. Cardiology consulted. (5) Atrial fibrillation Status: Acute Qualifiers: Atrial fibrillation type: paroxysmal Qualified Code(s): I48.0 - Paroxysmal atrial fibrillation (6) Essential hypertension Status: Acute (7) H/O aortic valve replacement Status: Acute (8) H/O aortic root repair Status: Deleted Infectious Disease HPI - Data of Consult Patient: known to practice within the last 3 years Consult date: 01/04/19 Requesting Physician: Leopoldo Perez Primary Care Provider: Oral Shaw, DO - Consult Narrative Reason for consult: Bacteremia, discitis History of present illness: Mr. Maurice is a 68 year old male with a past medical history of a-fib, HLD, HTN. The patient was admitted to the hospital 01/03/19 for bacteremia and discitis. We are consulted 01/04/19 for antibiotic recommendations for bacteremia discitis. Briefly, patient is a 68-year-old male, known to the ID service as he was seen in the clinic last week as a new referral for discitis. He had baseline labs drawn including blood cultures that came back +1 out of 2 sets for strep species. He was advised by our team to present to the ER for admission to the hospital. Upon arrival, he was afebrile. He was tachycardic with a mild leukocytosis and mild hypotension. Renal function and lactic acid were normal. Troponin was elevated at 0.72. Total bili was elevated at 1.7 with normal AST, ALTs, and alkaline phosphatase. Urinalysis was obtained and appeared contaminated. Additional 2 sets of blood cultures were obtained and are +2 out of 2 sets for strep species as well. He had a chest x-ray that showed vascular congestion without overt edema. CTA of the chest was negative. We advised the ER and hospitalist team to hold further antibiotics unless the patient became toxic or septic. Today, his white blood cell count is up to 13,000. Renal function remains normal. Radiology's been consulted to assist with his elevated troponin. He is scheduled to undergo bone biopsy later today. He is not currently on any antibiotics. We have been asked to evaluate and make further recommendations. During my exam today, the patient tells me that he does not feel any better or worse then he device, last week. He does endorse subjective fevers and chills and fatigue with generalized weakness. He denies any headache or neck pain. Denies any congestion, earache, or sore throat. Denies chest pain, shortness of breath, or cough. Denies nausea, vomiting, diarrhea, or constipation. He denies abdominal pain or urinary complaints. Denies any blood in his urine or stool. States his appetite has been diminished and he has lost about 25 pounds since [place]. Denies any specific back, joint, or extremity pain. Denies any oral thrush or new skin lesions. The patient lives at home with his . He is retired from the local [employer]. He denies any tobacco, alcohol, or illicit drug use. He denies any chronic infectious diseases. He denies any recent travel outside the [facility]. He denies any pet or animal exposures. CC: Leopoldo Perez Past Med Surg Social Fam HX - Past Medical History Attestation: Yes The following information was validated with the patient. Medical history: atrial fibrillation, hyperlipidemia, hypertension Psychiatric history: anxiety - Past Surgical History Surgical History: coronary bypass (CABG) Additional surgical history: LAMINECTOMY 2012 . 2014 CABG, COW VALVE CARIDAC VALVE REPLACEMENT. AND VALVE REPAIR. AORTA REPLACEMENT S/P ANEURSYM. - Social History Smoking Status: Never smoker Smokeless Tobacco Status: No Alcohol use: none Drug use: none Occupational status: retired Current living situation: Home, With Family Activity Level: Independent ambulation Recent Out of Country Travel Within the Last 8 Weeks: No Exposure or Possible Exposure to Illness During Travel: No - Family History Father Hx Family Endocrine Disorder: Yes (DM) Mother Hx Family Cancer: Yes (MULTIPLE MYELOMA) Infectious Disease-CN:Meds Apixaban [Eliquis] 5 mg PO BID 01/03/19 [History] Atorvastatin Calcium [Lipitor] 20 mg PO DAILY 01/03/19 [History] Bisacodyl [Dulcolax] 5 mg PO DAILY PRN 01/03/19 [History] Escitalopram [Lexapro] 10 mg PO HS 01/03/19 [History] Metoprolol Tartrate [Lopressor] 50 mg PO BID 01/03/19 [History] RX: Aspirin [Lo-Dose Aspirin EC] 162 mg PO DAILY 01/03/19 [History] RX: Lactulose [Enulose] 15 ml PO DAILY PRN 01/03/19 [History] RX: Triamterene/HCTZ 37.5/25mg [Dyazide] 1 tab PO DAILY 01/03/19 [History] Tamsulosin HCl [Flomax] 0.4 mg PO HS 01/03/19 [History] Allergy/AdvReac Type Severity Reaction Status Date / Time Penicillins Allergy See Verified 01/03/19 14:40 Comments All systems: reviewed and no additional remarkable complaints except as stated Exam - Constitutional Vitals: Temp Pulse Resp BP Pulse Ox 98.4 F 78 16 124/68 95 01/04/19 06:28 01/04/19 06:28 01/04/19 06:28 01/04/19 06:28 01/04/19 06:28 General appearance: average body habitus, cooperative, no acute distress - Head Head exam: Present: atraumatic, normal inspection, normocephalic - Eye Eye exam: Present: EOMI, normal appearance, PERRL Pupils: Present: normal accommodation Additional comments: No subconjunctival hemorrhage noted. - ENT ENT exam: Present: mucous membranes moist - Neck Neck exam: Present: normal inspection. Absent: meningismus - Respiratory Respiratory exam: Present: CTAB. Absent: rales, respiratory distress, rhonchi, wheezes - Cardiovascular Cardiovascular exam: Present: irregular rhythm, +S1, +S2. Absent: tachycardia - GI/Abdominal GI/Abdominal exam: Present: normal bowel sounds, soft. Absent: distended, tenderness - Extremities Exam Extremities exam: Present: normal inspection. Absent: joint swelling, pedal edema, tenderness - Back Exam Back exam: Present: normal inspection. Absent: paraspinal tenderness, vertebral tenderness - Neurological Exam Neurological exam: Present: alert, oriented X3, no focal deficits - Psychiatric Psychiatric exam: Present: normal affect, normal mood - Skin Skin exam: Present: dry, intact, pallor, warm Infectious Disease CN: Results - Labs CBC & Chem 7: 01/04/19 05:59 01/04/19 05:59 Cultures: Cultures 01/03/19 10:48 Blood Culture - Preliminary Peripheral Venipuncture Gram Positive Cocci 01/03/19 10:48 Blood Culture - Preliminary Peripheral Venipuncture Gram Positive Cocci Serology: Serology 01/03/19 01/03/19 Range/Units 12:00 10:48 Urine Color Dark Yellow (Yellow) Urine Clarity Clear (Clear) Urine pH 6.0 (5.0-8.0) pH Units Ur Specific [place] 1.014 (1.010-1.025) Urine Protein 30 H (Neg-Trace) mg/dL Urine Glucose (UA) Normal (Normal) mg/dL Urine Ketones Negative (Negative) mg/dL Urine Blood Small H (Negative) Urine Nitrite Negative (Negative) Urine Bilirubin Small H (Negative) Urine Urobilinogen 4.0 H (Normal) mg/dL Ur Leukocyte Esterase Negative (Negative) Urine Microscopic RBC 5-15 H (0-3) per hpf Urine Microscopic WBC 0-3 (0-3) per hpf Ur Squamous Epith Cells Moderate H (None-Few) per lpf Urine Bacteria None Seen (None-Few) per hpf Hyaline Casts None Seen (None-Few) per lpf Ur Culture Indicated? NO (NO) A. baumannii (PCR) Not Detected (Not Detect) [place] albicans (PCR) Not Detected (Not Detect) C. glabrata (PCR) Not Detected (Not Detect) C. krusei (PCR) Not Detected (Not Detect) C. parapsilosis (PCR) Not Detected (Not Detect) C. tropicalis (PCR) Not Detected (Not Detect) Enterobacteriac sp PCR Not Detected (Not Detect) E. cloacae complex PCR Not Detected (Not Detect) Enterococcus sp PCR Not Detected (Not Detect) E. coli (PCR) Not Detected (Not Detect) H. influenzae (PCR) Not Detected (Not Detect) Klebsiella oxytoca PCR Not Detected (Not Detect) Klebsiella pneumoniae Not Detected (Not Detect) List. monocytogenes PCR Not Detected (Not Detect) N. meningitidis (PCR) Not Detected (Not Detect) Proteus species (PCR) Not Detected (Not Detect) Serratia marcescens PCR Not Detected (Not Detect) Staphylococcus sp PCR Not Detected (Not Detect) Staph aureus (PCR) Not Detected (Not Detect) mecA-Methicil Res Gene Not Detected (Not Detect) Streptococcus sp PCR DETECTED A (Not Detect) Group A Strep DNA Not Detected (Not Detect) Group B Strep (PCR) Not Detected (Not Detect) Strep pneumoniae (PCR) Not Detected (Not Detect) P. aeruginosa (PCR) Not Detected (Not Detect) Tuan/B-Vanco Res Genes Not Detected (Not Detect) KPC (blaKPC) Detect PCR Not Detected (Not Detect) Consult Discharge Plan - Plan Referrals: Oral Shaw DO [Primary Care Provider] - - Attending Attestation I have personally performed a face to face evaluation on this patient. I have reviewed and agree with the care plan. History and Exam by me shows: Assessment and plan: 1. Sepsis 2. Acute osteomyelitis L3-L4 causative organism unclear but high index of suspicion for Strep spp 3. bacteremia with streptococcus Not group A/B or S. Pneumon - await final ID 4. H/O Bovine valve replacement and aortic reconstruction 2013 - exam with no obvious endocarditis 5. poor dentition 6. PCN allergy Recommendations: Await final ID and susceptibilities. Repeat blood cultures 2. Consult interventional radiology for aspiration of the lumbar spine disc space. 7 aspiration for cultures (aerobic, anaerobic, AFB, and fungal). Send specimen for pathology. TTE pending completion. Will likely need a FIFI prior to discharge. Once biopsy completed, start Rocephin 2 g IV daily. The patient does have a listed allergy to penicillin. He tells me that he had a reaction when he was a child, exact mechanism of reaction unknown. We will need to monitor closely for signs of allergic reaction. Start Vancomycin IV. Pharmacy to dose. Goal trough ~15. Duration of treatment depends on the clinical picture, likely at least 6 weeks. Monitor renal function and dose adjust antibiotics. Avoid insertion of long-term IV access until repeat blood cultures are negative 48 hours. ambulatory services representative to assist with discharge planning.
[2019-01-04] MEDS: Aspirin Enteric Coated 81 MG Tablet PO SCH (09:22)
[2019-01-04] MEDS ORDERED: *HR* FentaNYL (PF) 100 MCG/2 ML VIAL IVP ONE (10:19)
[2019-01-04] MEDS ORDERED: *HR* Midazolam HCl 2 MG/2 ML VIAL IVP ONE (10:19)
--- NOTE | 2019-01-04 10:21 | Pre-Sedation Evaluation ---
Pre-sedation evaluation - Pre-sedation checklist Date of procedure: 01/04/19 Procedure: L3-4 aspiration Recent Vitals: Last Vital Signs Temp 98.4 F 01/04/19 06:28 Pulse 78 01/04/19 06:28 Resp 16 01/04/19 06:28 BP 124/68 01/04/19 06:28 Pulse Ox 95 01/04/19 06:28 Airway Assessment: Patient can open mouth completely, TMJ function normal, Micrognathia (under-bite, receding chin) absent, Neck with adequate range of mo tion Possible difficult airway: No ASA Classification *see protocol: CLASS II-Mild systemic disease Plan of Care: Pt appropriate candidate for procedure/moderate/conscious sedation, Risks/benefits of procedure/sedation discussed w/ patient/family, If not NPO; Risk of intake outweiged by necessity to perform procedure Cardiac Registry (Cardio Only) - Clincal Frailty Scale Clinical Frailty Scale: Managing Well
[2019-01-04] MEDS ORDERED: 0.9 % Sodium Chloride 500 ML ONE (10:26)
[2019-01-04] MEDS: *HR* FentaNYL (PF) 100 MCG/2 ML VIAL IVP ONE (11:31)
--- NOTE | 2019-01-04 11:31 | IR Procedure Note ---
Date of procedure: 01/04/19 Consent Obtained: Written consent Timeout: Correct patient and procedure verified, Correct site verified, Time out performed, Skin prep completed Local anesthetic: Lidocaine 1% Indications: discitis L3-4 Procedure Performed: aspiration disc Was there an administrative assistant front desk present: No Site/Technique: L3-4 aspiration with 18G Chiba Results/Findings: aspirated 6cc Estimated blood loss (cc): 0 Complications: None; Tolerated procedure well Post Procedure Treatment Plan: dc to floor Specimen: 6cc of disc fluid
[2019-01-04] MEDS: *HR* Heparin 5,000 UNIT/ML VIAL IVP PRN (11:47)
[2019-01-04] MEDS ORDERED: cefTRIAXone 2,000 MG in 0.9 % Sodium Chloride Mini Bag 100 ML IVPB SCH (12:00)
[2019-01-04] MEDS ORDERED: Isovue-370 500 ML BOTTLE IVP ONE (12:41)
--- NOTE | 2019-01-04 15:35 | Internal Med Progress Note ---
<Eleni South - Last Filed: 01/04/19 15:33> Hospitalist Progress Note - Encounter Date of Encounter: 01/04/19 Time of Encounter: 09:15 - Subjective Interval History: Mr. Maurice was seen at bedside this morning. He had just returned from his echo this morning. His vitals were reviewed and were within normal limits he remained afebrile overnight. This morning he was resting comfortably in bed and denied any back pain. Per he had severe back pain which led to all his outpatient workup and discovery of L3 and L4 possible osteomyelitis. He is also denying fever, chills, nausea, emesis, shortness of breath, chest pain or abdominal pain. - Exam Vitals: Temp Pulse Resp BP Pulse Ox 98 F 81 16 136/85 95 01/04/19 11:20 01/04/19 11:20 01/04/19 11:20 01/04/19 11:20 01/04/19 11:20 Exam: General: Patient is alert, no acute distress, oriented x 3 ENT: Mucous membranes moist Eye: normal appearance, PERRL, no scleral icterus, no conjunctival injection Neck: normal inspection, trachea midline, full ROM, no carotid bruits Respiratory: Normal breath sounds. No wheezing or crackles. Cardiovascular: Regular rate and rhythm. s1 and s2 normal systolic click and murmur. No pedal edema Abdomen: Abdomen is soft, nontender. Bowel sounds are present Musculoskeletal: Spontaneously moving all extremities Skin: warm, dry, intact Neuro: Alert oriented x 3 normal cranial nerves, no focal deficits Psych: Patient's affect is normal - Assessment and Plan (1) Acute osteomyelitis Current Visit: Yes Status: Suspected Assessment and Plan: On admission his heart rate was 93 and white cell count was 11.7 with finding of streptococcus in 2 of his blood cultures. Is likely secondary to bacteremia. Also, continues to be elevated today it is 13.3. He denied any injury to his back recently or previously. He did note that in 2011 he had a laminectomy denies any current hardware. He does have an artificial valve in his heart. His morning he is afebrile blood pressure and heart rate are within normal limits. Plan: Infectious disease is following. He is currently on ceftriaxone and vancomycin infectious disease recommendation will require 6 weeks of therapy. Underwent echo this morning shows EF of 40-45% with moderate global LV systolic dysfunction, Cardiology recommends FIFI Nothing by mouth after midnight for planned FIFI to rule out vegetation Also status post aspiration of L3 and L4 by IR today pending results continue to follow Repeat blood cultures pending for tomorrow Continue to monitor CBC (2) Atrial fibrillation Current Visit: Yes Status: Acute Assessment and Plan: History of paroxysmal atrial fibrillation His presentation his rhythm has been regular Is not symptomatic Plan: Continue home metoprolol She currently not on anticoagulation Was on eliquis at home it was on hold due to planned aspiration of Le and L4 but due to his prosthetic valve with Coumadin would be more beneficial Will currently defer anticoagulation to cardiology (3) Bacteremia Current Visit: Yes Status: Acute Assessment and Plan: Was having severe back pain since August 2018. His back pain since then has resolved. He has required extensive workup and recent MRI of his back showed suspected L3 and L4 osteomyelitis. He was seen out infectious disease outpatient and was noted to have bacteremia requiring his current admission. His admission he denies any fever, chills or weakness Is he does note 25 pound weight loss due to anorexia Currently blood cultures are positive for 2 out of 2 streptococcus Gram-positive streptococcus Gram-positive organism speciation is currently pending Plan: Continue to follow CBC in the morning Repeat blood cultures pending for tomorrow On vancomycin and ceftriaxone day 1, infectious disease recommends total 6 weeks of therapy Pending FIFI tomorrow morning Further recommendations pending repeat blood cultures and FIFI (4) H/O aortic valve replacement Current Visit: Yes Status: Acute Assessment and Plan: Had an aortic valve replaced on 06/02/14 [facility] Due to his persistent bacteremia with Streptococcus organism there is concern for vegetation No murmur can be noted upon auscultation at this time Plan: Plan for FIFI tomorrow Nothing by mouth after midnight Repeat blood cultures tomorrow Is on Rocephin and vancomycin day 1 infectious disease recommends 6 weeks of total therapy (5) H/O mitral valve repair Current Visit: Yes Status: Acute Assessment and Plan: Had an mitral annuloplasty replaced on 06/02/14 [facility] Due to his persistent bacteremia with Streptococcus organism there is concern for vegetation No murmur can be noted upon auscultation at this time Plan: Plan for FIFI tomorrow Nothing by mouth after midnight Repeat blood cultures tomorrow Is on Rocephin and vancomycin day 1 infectious disease recommends 6 weeks of total therapy (6) Elevated troponin Current Visit: Yes Status: Acute Assessment and Plan: Mr. Maurice noted to have elevated troponin on admission and remained adynamic. He had no chest pain at presentation. His troponins were noted to be 0.72-0.48-0.52-0.60 with no EKG changes He had an echo this morning which showed EF of 40-45% with moderate global LV systolic dysfunction Continues to remain pain-free Plan: Cardiology recommends continue heparin drip Will have a FIFI tomorrow morning Nothing by mouth after midnight Continue telemetry (7) DVT prophylaxis Current Visit: Yes Status: Acute Assessment and Plan: Currently on a heparin drip - Time Spent with Patient Total time spent is greater than 50% in coordination of care (as documented) at patient's floor/unit and/or counseling patient: Internal Medicine: Result - Labs CBC & Chem 7: 01/04/19 05:59 01/04/19 05:59 Labs: Short CBC 01/04/19 Range/Units 05:59 WBC 13.3 H (4.3-11.1) K/mcL Hgb 10.3 L (12.9-16.9) g/dL Hct 33.8 L (37.5-50.1) % Plt Count 126 L (140-400) K/mcL Neutrophils # 11.2 H (1.6-8.9) K/mcL BMP 01/04/19 05:59 Sodium 134 L Potassium 3.6 Chloride 102 Carbon Dioxide 26 BUN 14 Creatinine 0.93 Glucose 139 H Calcium 8.9 Cardiac Enzymes 01/03/19 01/03/19 01/04/19 Range/Units 17:16 22:29 05:59 Troponin I 0.48 H* 0.52 H* 0.60 H* (< 0.04) ng/mL 01/04/19 Range/Units 14:39 Troponin I 0.52 H* (< 0.04) ng/mL - ABG Interpretation ABG results: PT/INR, D-dimer PT 17.4 Seconds (9.4-12.1) H 01/04/19 05:59 - Impressions Impressions Echocardiogram 01/03/19 14:39 Impressions: LVEF 40-45%. Moderate global left ventricular systolic dysfunction. Indeterminate diastolic function. Mild RV systolic dysfunction. Bioprosthetic aortic valve with moderate stenosis (V1/V2 1.06/3.1, PG/MG 38/25) and mild regurgitation, significant change c/w 05/29/2016 study. S/p mitral valve annuloplast with mild mitral regurgitation. Mild tricuspid regurgitation. Mild pulmonary hypertension. Recommend limited Echo with definity. Ordering physician notified via [employer]. Left Ventricular Wall Motion: Rest Echo Findings The apex, apical inferior, mid inferior, basal inferior, apical anterior, mid anterior, basal anterior, apical septal, mid inferior septal, basal inferior septal, apical lateral, mid anterior lateral, basal anterior lateral, mid anterior septal, mid inferior lateral, basal anterior septal and basal inferior lateral ellis were hypokinetic. Findings: Study Quality * Technically sub-optimal due to poor echocardiographic windows. ECG Findings * Atrial fibrillation, PVCs. Left Ventricle * LVEF 40-45%. * Normal LV chamber size and wall thickness. * Moderate global left ventricular systolic dysfunction. * Indeterminate diastolic function. * Definity echo contrast was not used. Right Ventricle * Normal right ventricular structure and mild systolic dysfunction. Left Atrium * Severely dilated left atrium. Right Atrium * Normal right atrial size. Interatrial Septum * Interatrial septum not well evaluated. * No evidence of PFO by color Doppler. Aortic Valve * Bioprosthetic aortic valve with moderate stenosis (V1/V2 1.06/3.1, PG/MG 38/25) * Mild aortic regurgitation, uncertain of valvular or perivalvular origin. Mitral Valve * S/p mitral valve annuloplasty. Mild mitral regurgitation. No significant stenosis. Tricuspid Valve * Normal tricuspid valve structure. * No tricuspid stenosis. * Mild tricuspid regurgitation. * Estimated RVSP is 46 mmHg. * Estimated RA pressure is 8 mmHg. * Mild pulmonary hypertension. Pulmonic Valve * Pulmonic valve is not well visualized. * No pulmonic stenosis. * No pulmonic regurgitation. Aorta * Normally sized aortic root. Pericardium * The pericardium appears normal. IVC * The IVC is dilated. * > 50% respiratory change Bone Biopsy 01/04/19 09:41 IMPRESSION: Successful fluoroscopy guided lumbar L3-L4 disc aspiration. D/ / 01/04/2019 11:53:09 Emilee Joe MD / bcarter Interpreting Provider: Emilee Joe MD Consult Discharge Plan - Plan Referrals: Oral Shaw DO [Primary Care Provider] - <Leopoldo Perez - Last Filed: 01/04/19 17:14> Hospitalist Progress Note - Encounter Date of Encounter: 01/04/19 Internal Medicine: Result - Labs CBC & Chem 7: 01/04/19 05:59 01/04/19 05:59 Labs: Short CBC 01/04/19 Range/Units 05:59 WBC 13.3 H (4.3-11.1) K/mcL Hgb 10.3 L (12.9-16.9) g/dL Hct 33.8 L (37.5-50.1) % Plt Count 126 L (140-400) K/mcL Neutrophils # 11.2 H (1.6-8.9) K/mcL BMP 01/04/19 05:59 Sodium 134 L Potassium 3.6 Chloride 102 Carbon Dioxide 26 BUN 14 Creatinine 0.93 Glucose 139 H Calcium 8.9 Cardiac Enzymes 01/03/19 01/03/19 01/04/19 Range/Units 17:16 22:29 05:59 Troponin I 0.48 H* 0.52 H* 0.60 H* (< 0.04) ng/mL 01/04/19 Range/Units 14:39 Troponin I 0.52 H* (< 0.04) ng/mL - ABG Interpretation ABG results: PT/INR, D-dimer PT 17.4 Seconds (9.4-12.1) H 01/04/19 05:59 - Impressions Impressions Echocardiogram 01/03/19 14:39 Impressions: LVEF 40-45%. Moderate global left ventricular systolic dysfunction. Indeterminate diastolic function. Mild RV systolic dysfunction. Bioprosthetic aortic valve with moderate stenosis (V1/V2 1.06/3.1, PG/MG 38/25) and mild regurgitation, significant change c/w 05/29/2016 study. S/p mitral valve annuloplast with mild mitral regurgitation. Mild tricuspid regurgitation. Mild pulmonary hypertension. Recommend limited Echo with definity. Ordering physician notified via [employer]. Left Ventricular Wall Motion: Rest Echo Findings The apex, apical inferior, mid inferior, basal inferior, apical anterior, mid anterior, basal anterior, apical septal, mid inferior septal, basal inferior septal, apical lateral, mid anterior lateral, basal anterior lateral, mid anterior septal, mid inferior lateral, basal anterior septal and basal inferior lateral ellis were hypokinetic. Findings: Study Quality * Technically sub-optimal due to poor echocardiographic windows. ECG Findings * Atrial fibrillation, PVCs. Left Ventricle * LVEF 40-45%. * Normal LV chamber size and wall thickness. * Moderate global left ventricular systolic dysfunction. * Indeterminate diastolic function. * Definity echo contrast was not used. Right Ventricle * Normal right ventricular structure and mild systolic dysfunction. Left Atrium * Severely dilated left atrium. Right Atrium * Normal right atrial size. Interatrial Septum * Interatrial septum not well evaluated. * No evidence of PFO by color Doppler. Aortic Valve * Bioprosthetic aortic valve with moderate stenosis (V1/V2 1.06/3.1, PG/MG 38/25) * Mild aortic regurgitation, uncertain of valvular or perivalvular origin. Mitral Valve * S/p mitral valve annuloplasty. Mild mitral regurgitation. No significant stenosis. Tricuspid Valve * Normal tricuspid valve structure. * No tricuspid stenosis. * Mild tricuspid regurgitation. * Estimated RVSP is 46 mmHg. * Estimated RA pressure is 8 mmHg. * Mild pulmonary hypertension. Pulmonic Valve * Pulmonic valve is not well visualized. * No pulmonic stenosis. * No pulmonic regurgitation. Aorta * Normally sized aortic root. Pericardium * The pericardium appears normal. IVC * The IVC is dilated. * > 50% respiratory change Bone Biopsy 01/04/19 09:41 IMPRESSION: Successful fluoroscopy guided lumbar L3-L4 disc aspiration. D/ / 01/04/2019 11:53:09 Emilee Joe MD / manda Interpreting Provider: Emilee Joe MD - Attending Attestation Patient seen and examined independently, including review of objective data including labs. 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 They were obtained during evaluation for osteomyelitis/discitis, and repeat cultures here are also positive. Patient admitted for further eval and management, starting with IR spine biopsy, which he tolerated well today. Unclear etiology but does have bacteremia for which ID has initiated rocephin and vancomycin. Will need repeat cultures until clear x48h and then will place PICC for extended outpatient IV abx. TTE today w/o vegetation, but given high risk patient including hx [place] will need FIFI for better evaluation of valves. Will check CT a/p to assess for potential GI source as well. <Eleni South - Last Filed: 01/04/19 15:33> (2) Atrial fibrillation Qualifiers: Atrial fibrillation type: paroxysmal Qualified Code(s): I48.0 - Paroxysmal atrial fibrillation
[2019-01-04] MEDS: Heparin 25,000 UNIT/250 ML D5W 25,000 UNIT/250 ML IV.SOLN IVC SCH (20:35)
[2019-01-05 00:48] LABS: Basophils % 0.1 %; Eosinophils % 0.2 %; Hematocrit 30.7 % (37.5-50.1); Hemoglobin 9.6 g/dL (12.9-16.9); Immature Granulocytes % 0.5 % (0-4); Lymphocytes # 0.8 K/mcL (0.6-4.6); Lymphocytes % 5.5 %; Mean Corpuscular HGB Conc 31.3 g/dL (31.6-35.5); Mean Corpuscular Hemoglobin 25.9 pg (28.0-33.3); Mean Platelet Volume 9.1 fL (9.4-12.4); Monocytes # 0.9 K/mcL (0.0-1.3); Monocytes % 6.4 %; Neutrophils # 11.8 K/mcL (1.6-8.9); Platelet Count 121 K/mcL (140-400); Red Cell Distribution Width 14.1 % (11.5-14.5); Segmented Neutrophils % 87.3 %
[2019-01-05 01:10] LABS: BUN/Creatinine Ratio 17 (6-26); Blood Urea Nitrogen 16 mg/dL (8-23); Calcium 8.5 mg/dL (8.6-10.3); Carbon Dioxide 23 mEq/L (23-29); Chloride 100 mEq/L (98-107); Glucose 130 mg/dL (70-105); Osmolality,Calculated 279 (280-300); Potassium 3.7 mEq/L (3.5-5.1); Sodium 133 mEq/L (136-145); eGFR For Non-African Americans > 60 (> 60)
--- NOTE | 2019-01-05 06:12 | Internal Med Progress Note ---
Hospitalist Progress Note - Encounter Date of Encounter: 01/05/19 - Exam Vitals: Temp Pulse Resp BP Pulse Ox 98 F 86 17 116/68 94 01/05/19 03:46 01/05/19 03:46 01/05/19 03:46 01/05/19 03:46 01/05/19 03:46 - Assessment and Plan (1) Acute osteomyelitis Current Visit: Yes Status: Suspected Assessment and Plan: On admission his heart rate was 93 and white cell count was 11.7 with finding of streptococcus in 2 of his blood cultures. Is likely secondary to bacteremia. Also, continues to be elevated today it is 13.3. He denied any injury to his back recently or previously. He did note that in 2011 he had a laminectomy denies any current hardware. He does have an artificial valve in his heart. His morning he is afebrile blood pressure and heart rate are within normal limits. Plan: Infectious disease is following. He is currently on ceftriaxone and vancomycin infectious disease recommendation will require 6 weeks of therapy. Underwent echo this morning shows EF of 40-45% with moderate global LV systolic dysfunction, Cardiology recommends FIFI Nothing by mouth after midnight for planned FIFI to rule out vegetation Also status post aspiration of L3 and L4 by IR today pending results continue to follow Repeat blood cultures pending for tomorrow Continue to monitor CBC (2) Atrial fibrillation Current Visit: Yes Status: Acute (3) Bacteremia Current Visit: Yes Status: Acute (4) H/O aortic valve replacement Current Visit: Yes Status: Acute (5) H/O mitral valve repair Current Visit: Yes Status: Acute (6) Elevated troponin Current Visit: Yes Status: Acute (7) DVT prophylaxis Current Visit: Yes Status: Acute - Time Spent with Patient Total time spent is greater than 50% in coordination of care (as documented) at patient's floor/unit and/or counseling patient: Internal Medicine: Result - Labs CBC & Chem 7: 01/05/19 00:36 01/05/19 00:36 Labs: Short CBC 01/04/19 01/05/19 Range/Units 05:59 00:36 WBC 13.3 H 13.5 H (4.3-11.1) K/mcL Hgb 10.3 L 9.6 L (12.9-16.9) g/dL Hct 33.8 L 30.7 L (37.5-50.1) % Plt Count 126 L 121 L (140-400) K/mcL Neutrophils # 11.2 H 11.8 H (1.6-8.9) K/mcL BMP 01/04/19 01/05/19 05:59 00:36 Sodium 134 L 133 L Potassium 3.6 3.7 Chloride 102 100 Carbon Dioxide 26 23 BUN 14 16 Creatinine 0.93 0.95 Glucose 139 H 130 H Calcium 8.9 8.5 L Cardiac Enzymes 01/04/19 01/04/19 Range/Units 05:59 14:39 Troponin I 0.60 H* 0.52 H* (< 0.04) ng/mL - ABG Interpretation ABG results: PT/INR, D-dimer PT 17.4 Seconds (9.4-12.1) H 01/04/19 05:59 - Impressions Impressions Echocardiogram 01/03/19 14:39 Impressions: LVEF 40-45%. Moderate global left ventricular systolic dysfunction. Indeterminate diastolic function. Mild RV systolic dysfunction. Bioprosthetic aortic valve with moderate stenosis (V1/V2 1.06/3.1, PG/MG 38/25) and mild regurgitation, significant change c/w 05/29/2016 study. S/p mitral valve annuloplast with mild mitral regurgitation. Mild tricuspid regurgitation. Mild pulmonary hypertension. Recommend limited Echo with definity. Ordering physician notified via [employer]. Left Ventricular Wall Motion: Rest Echo Findings The apex, apical inferior, mid inferior, basal inferior, apical anterior, mid anterior, basal anterior, apical septal, mid inferior septal, basal inferior septal, apical lateral, mid anterior lateral, basal anterior lateral, mid anterior septal, mid inferior lateral, basal anterior septal and basal inferior lateral ellis were hypokinetic. Findings: Study Quality * Technically sub-optimal due to poor echocardiographic windows. ECG Findings * Atrial fibrillation, PVCs. Left Ventricle * LVEF 40-45%. * Normal LV chamber size and wall thickness. * Moderate global left ventricular systolic dysfunction. * Indeterminate diastolic function. * Definity echo contrast was not used. Right Ventricle * Normal right ventricular structure and mild systolic dysfunction. Left Atrium * Severely dilated left atrium. Right Atrium * Normal right atrial size. Interatrial Septum * Interatrial septum not well evaluated. * No evidence of PFO by color Doppler. Aortic Valve * Bioprosthetic aortic valve with moderate stenosis (V1/V2 1.06/3.1, PG/MG 38/25) * Mild aortic regurgitation, uncertain of valvular or perivalvular origin. Mitral Valve * S/p mitral valve annuloplasty. Mild mitral regurgitation. No significant stenosis. Tricuspid Valve * Normal tricuspid valve structure. * No tricuspid stenosis. * Mild tricuspid regurgitation. * Estimated RVSP is 46 mmHg. * Estimated RA pressure is 8 mmHg. * Mild pulmonary hypertension. Pulmonic Valve * Pulmonic valve is not well visualized. * No pulmonic stenosis. * No pulmonic regurgitation. Aorta * Normally sized aortic root. Pericardium * The pericardium appears normal. IVC * The IVC is dilated. * > 50% respiratory change Bone Biopsy 01/04/19 09:41 IMPRESSION: Successful fluoroscopy guided lumbar L3-L4 disc aspiration. D/ / 01/04/2019 11:53:09 Emilee Joe MD / bcanicole Interpreting Provider: Emilee Joe MD Abdomen/Pelvis CT 01/04/19 15:30 IMPRESSION: Infrarenal abdominal aortic aneurysm measuring 3.4 cm. See below. Wedge-shaped hypodensities within the splenic parenchyma most compatible with acute to subacute infarcts. Low-attenuation within the anterior upper splenic parenchyma possibly representing infarct at the draining branch of the left renal vein appears hypodense, possibly with thrombus. Focal nephritis could have this appearance as well. Follow-up to resolution is recommended. Endplate irregularity and destructive changes at L3-4 which could represent advanced degenerative disc disease common not changed since 11/19/2018. Correlation for the possibility of discitis/osteomyelitis is recommended. RECOMMENDATIONS: 2012.0 cm AAA Recommend referral to a vascular surgeon. Reference: J Vasc Surg 2009 Oct;50(4 Suppl):S2-49. D/ / Brittany Blandon Cha, MD / Brittany Blandon Cha, MD Interpreting Provider: Brittany Blandon Cha, MD Consult Discharge Plan - Plan Referrals: Oral Shaw DO [Primary Care Provider] - (2) Atrial fibrillation Qualifiers: Atrial fibrillation type: paroxysmal Qualified Code(s): I48.0 - Paroxysmal atrial fibrillation
[2019-01-05] MEDS: Aspirin Enteric Coated 81 MG Tablet PO SCH (08:15)
[2019-01-05] MEDS ORDERED: cefTRIAXone 2,000 MG in Water for inj. (sterile) 20 ML 20 ML IVP SCH (09:00)
[2019-01-05] MEDS ORDERED: Aminoglycoside Consult 1 EACH MC ONE (09:03)
--- NOTE | 2019-01-05 09:18 | Infectious Disease Progress No ---
Date of Encounter: 01/05/19 Time of Encounter: 08:30 - Assessment and Plan (1) Sepsis Status: Acute The patient had 2 sepsis criteria on admission. Likely secondary to bacteremia and osteomyelitis. White blood cell count stable around 13. Tachycardia has resolved. Blood cultures drawn 12/30/18 are +1 out of 2 sets for strep species. Repeat blood cultures from 01/03/19 are also +2 out of 2 sets for strep species. Repeat blood cultures drawn 01/05/19 are pending 2 sets. Recommendations: Await final ID and susceptibilities. Await repeat blood cultures. Await disc aspiration cultures. Pending completion of FIFI later today. Continue Rocephin 2 g IV daily. The patient does have a listed allergy to penicillin. He tells me that he had a reaction when he was a child, exact mec hanism of reaction unknown. We will need to monitor closely for signs of allergic reaction. Seems to be tolerating well so far. Continue Vancomycin IV. Pharmacy to dose. Goal trough ~15. Duration of treatment depends on the clinical picture, likely at least 6 weeks. We will de-escalate based on final cultures and susceptibilities. Monitor renal function and dose adjust antibiotics. Avoid insertion of long-term IV access until repeat blood cultures are negative 48 hours. agricultural services director to assist with discharge planning. Qualifiers: Sepsis type: Streptococcus, unspecified Qualified Code(s): A40.9 - Streptococcal sepsis, unspecified; A40 - Streptococcal sepsis (2) Bacteremia Status: Acute Causative organism: Strep species. Blood cultures drawn 12/30/18 are +1 out of 2 for strep species per the PCR. Repeat blood cultures drawn 01/03/19 are +2 out of 2 sets as well. Additional blood cultures on 01/05/19 are pending 2 sets. Source: Unclear. He does have a bioprosthetic heart valve. No endocarditis stigmata noted. CT of the abdomen and pelvis was negative for acute process in the abdomen suggesting a possible source. TTE negative for obvious vegetation, but did show moderate stenosis of the bioprosthetic aortic valve and mild regurgitation, significant change compared with previous 2016 study. FIFI pending completion today. Currently on Rocephin and vancomycin. (3) Acute osteomyelitis Status: Acute Causative organism: Unclear, but given blood culture results, high index of suspicion for strep species. CT of the abdomen and pelvis in October 2018 showed findings indicative of osteoarthritis/discitis. MRI of the lumbar spine completed November 2018 showed findings indicative of discitis/osteomyelitis. Status post CT-guided aspiration of the disc space by interventional radiology 01/04/19. Cultures are pending. Currently on vancomycin and Rocephin. (4) NSTEMI (non-ST elevated myocardial infarction) Status: Chronic Troponin elevated on admission. Cardiology consulted. (5) Anemia Status: Acute Etiology: Unclear. Further workup and management per the primary team. 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 (11) Renal vein thrombosis Status: Acute CT of abdomen and pelvis 01/04/19 showed low attenuation within the anterior upper splenic parenchyma possibly representing infarct at the draining branch of the left renal vein appears hypodense, possibly with thrombus. Consider vascular surgery to evaluate. - Subjective Interval history: Patient seen and examined. No acute events noted overnight. Patient states he feels a little better today. Denies any fevers or chills or rigors. Denies chest pain, shortness of breath. Reports a moist nonproductive cough that he reports is from sinus drainage. Denies nausea, vomiting, diarrhea, or constipation. Last bowel movement was yesterday. Denies abdominal pain or urin dereck complaints. States he is hungry this morning, but is currently nothing by mouth for a FIFI later today. Denies back, joint, or extremity pain. Denies any oral thrush or new skin lesions. Infect Dis PN-Objective Data - Labs CBC & Chem 7: 01/05/19 00:36 01/05/19 00:36 Labs: Laboratory Results - last 24 hr 01/04/19 01/04/19 01/05/19 14:39 17:51 00:36 WBC 13.5 H RBC 3.70 L Hgb 9.6 L Hct 30.7 L MCV 83.0 MCH 25.9 L MCHC 31.3 L RDW 14.1 Plt Count 121 L MPV 9.1 L Immature Gran % 0.5 Seg Neutrophils % 87.3 Lymphocytes % 5.5 Monocytes % 6.4 Eosinophils % 0.2 Basophils % 0.1 Neutrophils # 11.8 H Lymphocytes # 0.8 Monocytes # 0.9 Eosinophils # 0.0 Basophils # 0.0 Heparin Anti-Xa, Unfract 0.31 Sodium Potassium Chloride Carbon Dioxide BUN Creatinine Est GFR ( Amer) Est GFR (Non-Af Amer) BUN/Creatinine Ratio Glucose Calculated Osmolality Calcium Troponin I 0.52 H* 01/05/19 01/05/19 00:36 00:36 WBC RBC Hgb Hct MCV MCH MCHC RDW Plt Count MPV Immature Gran % Seg Neutrophils % Lymphocytes % Monocytes % Eosinophils % Basophils % Neutrophils # Lymphocytes # Monocytes # Eosinophils # Basophils # Heparin Anti-Xa, Unfract 0.06 L Sodium 133 L Potassium 3.7 Chloride 100 Carbon Dioxide 23 BUN 16 Creatinine 0.95 Est GFR ( Amer) > 60 Est GFR (Non-Af Amer) > 60 BUN/Creatinine Ratio 17 Glucose 130 H Calculated Osmolality 279 L Calcium 8.5 L Troponin I Cultures: Cultures 01/05/19 07:00 Blood Culture - Preliminary Peripheral Venipuncture Culture is incubating and being continuously monitored for growth. Final report to follow. 01/05/19 06:56 Blood Culture - Preliminary Peripheral Venipuncture Culture is incubating and being continuously monitored for growth. Final report to follow. 01/04/19 10:40 Fungal Culture - Preliminary Bone Culture is incubating. 01/04/19 10:40 Surgical Biopsy Culture - Preliminary Bone 01/04/19 10:40 Anaerobic Culture - Preliminary Bone Culture is incubating. 01/03/19 10:48 Blood Culture - Preliminary Peripheral Venipuncture Gram Positive Cocci 01/03/19 10:48 Blood Culture - Preliminary Peripheral Venipuncture Gram Positive Cocci Serology 01/03/19 01/03/19 Range/Units 12:00 10:48 Urine Color Dark Yellow (Yellow) Urine Clarity Clear (Clear) Urine pH 6.0 (5.0-8.0) pH Units Ur Specific [place] 1.014 (1.010-1.025) Urine Protein 30 H (Neg-Trace) mg/dL Urine Glucose (UA) Normal (Normal) mg/dL Urine Ketones Negative (Negative) mg/dL Urine Blood Small H (Negative) Urine Nitrite Negative (Negative) Urine Bilirubin Small H (Negative) Urine Urobilinogen 4.0 H (Normal) mg/dL Ur Leukocyte Esterase Negative (Negative) Urine Microscopic RBC 5-15 H (0-3) per hpf Urine Microscopic WBC 0-3 (0-3) per hpf Ur Squamous Epith Cells Moderate H (None-Few) per lpf Urine Bacteria None Seen (None-Few) per hpf Hyaline Casts None Seen (None-Few) per lpf Ur Culture Indicated? NO (NO) A. baumannii (PCR) Not Detected (Not Detect) [place] albicans (PCR) Not Detected (Not Detect) C. glabrata (PCR) Not Detected (Not Detect) C. krusei (PCR) Not Detected (Not Detect) C. parapsilosis (PCR) Not Detected (Not Detect) C. tropicalis (PCR) Not Detected (Not Detect) Enterobacteriac sp PCR Not Detected (Not Detect) E. cloacae complex PCR Not Detected (Not Detect) Enterococcus sp PCR Not Detected (Not Detect) E. coli (PCR) Not Detected (Not Detect) H. influenzae (PCR) Not Detected (Not Detect) Klebsiella oxytoca PCR Not Detected (Not Detect) Klebsiella pneumoniae Not Detected (Not Detect) List. monocytogenes PCR Not Detected (Not Detect) N. meningitidis (PCR) Not Detected (Not Detect) Proteus species (PCR) Not Detected (Not Detect) Serratia marcescens PCR Not Detected (Not Detect) Staphylococcus sp PCR Not Detected (Not Detect) Staph aureus (PCR) Not Detected (Not Detect) mecA-Methicil Res Gene Not Detected (Not Detect) Streptococcus sp PCR DETECTED A (Not Detect) Group A Strep DNA Not Detected (Not Detect) Group B Strep (PCR) Not Detected (Not Detect) Strep pneumoniae (PCR) Not Detected (Not Detect) P. aeruginosa (PCR) Not Detected (Not Detect) Tuan/B-Vanco Res Genes Not Detected (Not Detect) KPC (blaKPC) Detect PCR Not Detected (Not Detect) - Impressions Impressions Echocardiogram 01/03/19 14:39 Impressions: LVEF 40-45%. Moderate global left ventricular systolic dysfunction. Indeterminate diastolic function. Mild RV systolic dysfunction. Bioprosthetic aortic valve with moderate stenosis (V1/V2 1.06/3.1, PG/MG 38/25) and mild regurgitation, significant change c/w 05/29/2016 study. S/p mitral valve annuloplast with mild mitral regurgitation. Mild tricuspid regurgitation. Mild pulmonary hypertension. Recommend limited Echo with definity. Ordering physician notified via [place]. Left Ventricular Wall Motion: Rest Echo Findings The apex, apical inferior, mid inferior, basal inferior, apical anterior, mid anterior, basal anterior, apical septal, mid inferior septal, basal inferior septal, apical lateral, mid anterior lateral, basal anterior lateral, mid anterior septal, mid inferior lateral, basal anterior septal and basal inferior lateral ellis were hypokinetic. Findings: Study Quality * Technically sub-optimal due to poor echocardiographic windows. ECG Findings * Atrial fibrillation, PVCs. Left Ventricle * LVEF 40-45%. * Normal LV chamber size and wall thickness. * Moderate global left ventricular systolic dysfunction. * Indeterminate diastolic function. * Definity echo contrast was not used. Right Ventricle * Normal right ventricular structure and mild systolic dysfunction. Left Atrium * Severely dilated left atrium. Right Atrium * Normal right atrial size. Interatrial Septum * Interatrial septum not well evaluated. * No evidence of PFO by color Doppler. Aortic Valve * Bioprosthetic aortic valve with moderate stenosis (V1/V2 1.06/3.1, PG/MG 38/25) * Mild aortic regurgitation, uncertain of valvular or perivalvular origin. Mitral Valve * S/p mitral valve annuloplasty. Mild mitral regurgitation. No significant stenosis. Tricuspid Valve * Normal tricuspid valve structure. * No tricuspid stenosis. * Mild tricuspid regurgitation. * Estimated RVSP is 46 mmHg. * Estimated RA pressure is 8 mmHg. * Mild pulmonary hypertension. Pulmonic Valve * Pulmonic valve is not well visualized. * No pulmonic stenosis. * No pulmonic regurgitation. Aorta * Normally sized aortic root. Pericardium * The pericardium appears normal. IVC * The IVC is dilated. * > 50% respiratory change Bone Biopsy 01/04/19 09:41 IMPRESSION: Successful fluoroscopy guided lumbar L3-L4 disc aspiration. D/ / 01/04/2019 11:53:09 Emilee Joe MD / bcarter Interpreting Provider: Emilee Joe MD Abdomen/Pelvis CT 01/04/19 15:30 IMPRESSION: Infrarenal abdominal aortic aneurysm measuring 3.4 cm. See below. Wedge-shaped hypodensities within the splenic parenchyma most compatible with acute to subacute infarcts. Low-attenuation within the anterior upper splenic parenchyma possibly representing infarct at the draining branch of the left renal vein appears hypodense, possibly with thrombus. Focal nephritis could have this appearance as well. Follow-up to resolution is recommended. Endplate irregularity and destructive changes at L3-4 which could represent advanced degenerative disc disease common not changed since 11/19/2018. Correlation for the possibility of discitis/osteomyelitis is recommended. RECOMMENDATIONS: 2012.0 cm AAA Recommend referral to a vascular surgeon. Reference: J Vasc Surg 2009 Oct;50(4 Suppl):S2-49. D/ / Brittany Blandon Cha, MD / Brittany Blandon Cha, MD Interpreting Provider: Brittany Blandon Cha, MD Exam - Constitutional Vitals: Temp Pulse Resp BP Pulse Ox 97.5 F L 58 15 99/62 96 01/05/19 07:06 01/05/19 07:06 01/05/19 07:06 01/05/19 07:06 01/05/19 07:06 General appearance: average body habitus, cooperative, no acute distress - Head Head exam: Present: atraumatic, normal inspection, normocephalic - Eye Eye exam: Present: EOMI, normal appearance, PERRL Pupils: Present: normal accommodation Additional comments: No subconjunctival hemorrhage noted. - ENT ENT exam: Present: mucous membranes moist - Neck Neck exam: Present: normal inspection. Absent: meningismus - Respiratory Respiratory exam: Present: CTAB. Absent: rales, respiratory distress, rhonchi, wheezes - Cardiovascular Cardiovascular exam: Present: irregular rhythm, +S1, +S2. Absent: tachycardia - GI/Abdominal GI/Abdominal exam: Present: normal bowel sounds, soft. Absent: distended, tenderness - Extremities Exam Extremities exam: Present: normal inspection. Absent: joint swelling, pedal edema, tenderness - Back Exam Back exam: Absent: paraspinal tenderness, vertebral tenderness - Neurological Exam Neurological exam: Present: alert, oriented X3, no focal deficits - Psychiatric Psychiatric exam: Present: normal affect, normal mood - Skin Skin exam: Present: dry, intact, normal color, warm Additional comments: No endocarditis stigmata noted. Consult Discharge Plan - Plan Referrals: Oral Shaw DO [Primary Care Provider] - - Attending Attestation I have personally performed a face to face evaluation on this patient. I have reviewed and agree with the care plan. 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 May represent abscess cavity. The posterior wall of the aortic root and ascending thoracic aorta is a congenic and thickening possibly representing abscess formation. Concern for osteomyelitis Continue current antibiotics for now Need to transfer patient.
[2019-01-05] MEDS ORDERED: Lidocaine Viscous Oral Soln 15 ML SOLUTION ONE (09:56)
[2019-01-05] MEDS ORDERED: *HR* FentaNYL (PF) 100 MCG/2 ML VIAL ONE (09:57)
[2019-01-05] MEDS ORDERED: *HR* Midazolam HCl 5 MG/5 ML VIAL IVP ONE (09:57)
[2019-01-05] MEDS: *HR* FentaNYL (PF) 100 MCG/2 ML VIAL IVP ONE (12:11)
--- NOTE | 2019-01-05 12:52 | Event Note ---
Date of Encounter: 01/05/19 Time of Encounter: 12:[address] Mackenzie. FIFI demonstrated dehiscence of the aortic valve with a likely perivalvular abscess. I reviewed previous TTE images from 2016, these aortic root findings were not present then. Given bacteremia, possible aortic valve dehiscence with perivalvular abscess, recommend referral to a tertiary center for possible surgical evaluation. Case discussed with infectious disease and IM resident. Family updated on findings.
--- NOTE | 2019-01-05 14:15 | Discharge Summary ---
<Everton Mosher - Last Filed: 01/05/19 14:12> - NOTES TO OUTPATIENT PROVIDER Notes to Outpatient Provider: Patient is being transferred to [facility] for cardiothoracic surgery evaluation. Orders not resulted at time of discharge: Pending orders 01/03/19 10:48 Culture,Blood [BC] Stat 01/04/19 08:13 Surgical Pathology [PTH] Routine 01/04/19 10:40 AFB Culture, Tissue [TB] Routine Culture,Anaerobic [RM] Routine Culture,Tissue (Biopsy) [RM] Routine Fungal Culture [MYC] Routine 01/05/19 07:00 Culture,Blood [BC] Routine 01/05/19 23:00 Vancomycin,Trough Timed 01/06/19 04:00 Culture,Blood [BC] Routine Date of Encounter: 01/05/19 Time of Encounter: 13:15 - Discharge Diagnosis (1) Bacteremia Priority: Primary Status: Acute (2) Aortic valve abscess, bacterial Priority: Secondary Status: Acute (3) Acute osteomyelitis Priority: Secondary Status: Suspected (4) Splenic infarct Priority: Secondary Status: Acute (5) Atrial fibrillation Priority: Secondary Status: Acute Qualifiers: Atrial fibrillation type: paroxysmal Qualified Code(s): I48.0 - Paroxysmal atrial fibrillation (6) H/O aortic valve replacement Priority: Secondary Status: Acute (7) H/O mitral valve repair Priority: Secondary Status: Acute Hospital course: Mr. Maurice is a 68 year old male with history of atrial fibrillation, hyperlipidemia, hypertension and aortic valvuloplasty via Bentall procedure by Dr. Carter at [facility] in 2013 who presents to the hospital at the direction of this infectious disease doctor due to findings of 2 positive blood cultures. The patient has apparently been having episodes of fever intermittently at home as well as some intermittent back pain. He did have an MRI in November which demonstrated a possible discitis versus osteomyelitis and L3-L4 region of his spine, at which time he was placed on Levaquin and referred to infectious disease. Blood cultures recently demonstrated 2 positive sets of gram-positive cocci so he was admitted to the hospital for management. While in the hospital, the patient was found to have a mildly elevated troponin at 0.52, and also he did have some vascular congestion on chest x-ray. The patient was febrile on arrival to the hospital. CT of the abdomen and pelvis upon arrival demonstrated infrarenal abdominal aortic aneurysm measuring 3.4 cm which was a known AAA, however increased in size, however there is also concern for wedge-shaped hypodensities within the splenic parenchyma most compatible with acute to subacute infarcts. The patient did undergo fluoroscopy guided bone biopsy of his lumbar spine and was started on empiric antibiotics with Rocephin and Vancomycin pending cultures. He later had a transesophageal echocardiogram which was significant for bioprosthetic aortic valve suture line dehiscence associated with pseudoaneurysm formation of the aortic root which is concerning for development of perivalvular abscess. After discussing the case with cardiology, we determine the most appropriate option would be transfer to tertiary care center. I did discuss the case with the patient and he determined that [facility] would be appropriate. The patient has been accepted by [facility] for transfer and is pending placement. Discharge discussed with: patient, family, nurse, social work, case management, business solutions consultant - Time Spent with Patient Total time spent providing and/or coordinating discharge services: Time spent: Greater than 30 minutes - Discharge Medications Prescriptions: Continue Bisacodyl [Dulcolax] 5 mg PO DAILY PRN PRN Reason: Constipation Aspirin [Lo-Dose Aspirin EC] 162 mg PO DAILY Apixaban [Eliquis] 5 mg PO BID Metoprolol Tartrate [Lopressor] 50 mg PO BID Triamterene/HCTZ 37.5/25mg [Dyazide] 1 tab PO DAILY Tamsulosin HCl [Flomax] 0.4 mg PO HS Atorvastatin Calcium [Lipitor] 20 mg PO DAILY Escitalopram [Lexapro] 10 mg PO HS Lactulose [Enulose] 15 ml PO DAILY PRN PRN Reason: Constipation Home Medications: Apixaban [Eliquis] 5 mg PO BID 01/03/19 [History] Aspirin [Lo-Dose Aspirin EC] 162 mg PO DAILY 01/03/19 [History] Atorvastatin Calcium [Lipitor] 20 mg PO DAILY 01/03/19 [History] Bisacodyl [Dulcolax] 5 mg PO DAILY PRN 01/03/19 [History] Escitalopram [Lexapro] 10 mg PO HS 01/03/19 [History] Lactulose [Enulose] 15 ml PO DAILY PRN 01/03/19 [History] Metoprolol Tartrate [Lopressor] 50 mg PO BID 01/03/19 [History] Tamsulosin HCl [Flomax] 0.4 mg PO HS 01/03/19 [History] Triamterene/HCTZ 37.5/25mg [Dyazide] 1 tab PO DAILY 01/03/19 [History] Allergies/Adverse Reactions: Allergy/AdvReac Type Severity Reaction Status Date / Time Penicillins Allergy See Verified 01/03/19 14:40 Comments Date of admission: 01/03/19 15:22 Primary care physician: rOal Shaw DO Consults: 01/03/19 12:14 Consult to Infectious Diseases [CONS] Stat Consulting Provider: Infectious Disease Erica Reason for Consult: osteo, known to your service Call Completed: Yes 01/03/19 14:37 Consult to Interventional Radiology [CONS] Routine Consulting Provider: Radiology Interventional Cols Reason for Consult: Vertebral Bone biopsy L3-4 for discitis/ Osteomyelitis Call Completed: No 01/03/19 14:39 Consult to Cardiology [CONS] Routine Comment: Consulting Provider: Cardiology [place] Reason for Consult: Troponin elevation Call Completed: No 01/03/19 17:10 Consult to Nutrition [CONS] Routine Comment: Consulting Provider: NUTRITION Reason for Dietary Consult: MST Score Discharging clinician: Everton Mosher Anticipated date of discharge: 01/05/19 - Constitutional Vitals: Temp Pulse Resp BP Pulse Ox 97.5 F L 58 15 99/62 96 01/05/19 07:06 01/05/19 07:06 01/05/19 07:06 01/05/19 07:06 01/05/19 07:06 General appearance: Present: cooperative, A&O X 3, no acute distress, answers questions appropriately Exam: Gen: Vitals noted. No acute distress. Eyes: anicteric sclerae, moist conjunctivae; no lid-lag; Pupils equal and reactive to light HENT: Atraumatic; oropharynx clear with moist mucous membranes and no mucosal ulcerations; normal hard and soft palate Neck: Trachea midline; supple, no thyromegaly or lymphadenopathy Cardiac: RRR, no murmur, +S1/S2 Pulmonary: CTA bilaterally, no wheezes, rales or rhonchi, equal chest expansion Abdomen: soft, nontender, no guarding. No masses or hepatosplenomegaly MSK: ROM intact, no joint swelling noted Extremities: no BLE edema, nontender calf, no cyanosis or clubbing Skin: Normal temperature, turgor and texture; no rash, ulcers or subcutaneous nodules Neuro: moves all extremities, no focal deficits. Psych: Appropriate mood and behavior. A&Ox3 - Patient Status Disposition: Transfer Other Condition: Serious Functional capacity at discharge: independent ambulation Overall status at discharge: patient is back to baseline - Discharge Instructions Follow Up With: Oral Shaw DO [Primary Care Provider] - Forms: ED Satisfaction Letter - Diet and Activity Activity: return to work once cleared by your PCP/specialist Diet: low salt diet <Leopoldo Perez - Last Filed: 01/05/19 16:42> Date of Encounter: 01/05/19 Date of admission: 01/03/19 15:22 Primary care physician: Oral Shaw DO Consults: 01/03/19 12:14 Consult to Infectious Diseases [CONS] Stat Consulting Provider: Infectious Disease [place] Reason for Consult: osteo, known to your service Call Completed: Yes 01/03/19 14:37 Consult to Interventional Radiology [CONS] Routine Consulting Provider: Radiology Interventional [place] Reason for Consult: Vertebral Bone biopsy L3-4 for discitis/ Osteomyelitis Call Completed: No 01/03/19 14:39 Consult to Cardiology [CONS] Routine Comment: Consulting Provider: Cardiology Eric[place] Reason for Consult: Troponin elevation Call Completed: No 01/03/19 17:10 Consult to Nutrition [CONS] Routine Comment: Consulting Provider: NUTRITION Reason for Dietary Consult: MST Score - Attending Attestation Patient seen and examined. I agree with the discharge plan as documented above by the resident. In summary, Jeff Maurice is a 68 M w hx Bentall procedure (aortic valve and root repair with coronary artery grafting), sent from outpatient ID clinic after blood cultures were positive. He had reported back pain and fevers since , and thus was sent for outpatient MRI which showed dis citis/osteomyelitis, which prompted ID clinic appointment. Blood cultures were drawn at that appointment and four days later flagged positive for Strep, slow growing species yet to speciate. In the hospital, both repeat cultures from 01/03 here are also positive for Strep (species TBD). Patient underwent spine biopsy by IR on 01/04, which he tolerated well, and subsequently started on rocephin and vancomycin per ID. Repeat BCx drawn 01/05 still pending. FIFI showing suspected perivalvular abscess and aortic valve dehiscence for which transfer to tertiary center recommended; [facility] in [place] where procedure initially performed referred patient's case up to [facility] and they have accepted pt in transfer. CT abd obtained looking for occult GI source which was negative. Pt clinically stable without any complaints and has good functional status and is awake/fully oriented. Full Code. Time spent on discharge: 45 minutes
[2019-01-05] MEDS: *HR* Heparin 5,000 UNIT/ML VIAL IVP PRN (14:49)
[2019-01-05] MEDS: Heparin 25,000 UNIT/250 ML D5W 25,000 UNIT/250 ML IV.SOLN IVC SCH (16:48)
--- NOTE | 2019-01-05 19:17 | Electrocardiograph Report ---
[place] [id number] Test Date: 2019-01-03 Pat Name: Jeff Maurice Department: [id number] Room: 2A47 Gender: M Twister Doffer: : 1950 Requested By: Delma Love Order Number: [id number] Reading MD: Tanvir Woody Measurements Intervals [place] Rate: 76 P: [place]: QRS: 50 QRSD: 120 T: 38 QT: 410 QTc: 461 Interpretive Statements Atrial fibrillation IVCD, consider atypical RBBB Ventricular premature complex Left ventricular hypertrophy Electronically Signed On 01-05-2019 19:15:48 EDT by Tanvir Woody
[2019-01-06 06:32] VITALS: BP 94/53
[2019-01-06] MEDS: Heparin 25,000 UNIT/250 ML D5W 25,000 UNIT/250 ML IV.SOLN IVC SCH (08:23)
--- NOTE | 2019-01-06 11:08 | Event Note ---
<Eleni South - Last Filed: 01/06/19 11:09> Date of Encounter: 01/06/19 Time of Encounter: 08:20 Mr. Maurice was seen at bedside this morning. His vitals remained stable overnight. He was tremelous upon exam. Per he has had tremors for a long time. He had finished his breakfast this morning. He denied any fever, chills, nausea, shortness of breath or chest pain. The remainder of the physical exam was within normal limits. His FIFI showed concern for perivalvular abscess. He has history of aortic valve replace and mitral valvuloplasty. Currently the strep blood culture has not been speciated. He is being transferred to a tertiary care center. Further management will be conducted at the outside facility. <Jaime Bello - Last Filed: 01/06/19 22:21> Date of Encounter: 01/06/19 Chart reviewed, patient case discussed with nursing. Prior to coming to examine patient, he was being transported. requested that no exam be done because they have been waiting for bed availability and transportation is ready for him, and so no exam was done per family request.
--- NOTE | 2019-01-06 17:14 | Electrocardiograph Report ---
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
== END 2019-01-06 09:04 | disposition other institution (70) | DRG 314 ==
LOC: 3NENU 10:14 → EMEROOARM 10:14 → SUATTDRO 15:22 → 3NENU 17:00 → 2ANU 01-04 13:30
PROVIDERS: ADMIT Internal Medicine; ATTEND Internal Medicine